=== PATIENT | female | born 1990 | race Caucasian/White ===

== ENCOUNTER 2019-12-28 10:36 | Outpatient (CLI) | payer MEDICAID, SELFPAY ==
--- NOTE | 2019-12-28 | DI.US_ITS ---
EXAM: US ABDOMEN CLINICAL HISTORY: POSTPRANDIAL NAUSEA, VOMITING, R11.2 TECHNIQUE: Ultrasound abdomen performed using standard protocol. COMPARISON: No exams were available for comparison FINDINGS: ABDOMINAL AORTA AND IVC: Visualized portions normal caliber. PANCREAS: Normal where visualized. LIVER: Normal. Hepatopedal flow in the Portal Vein. GALLBLADDER: No evidence of cholelithiasis. No evidence of wall thickening. No pericholecystic fluid identified. BILIARY SYSTEM: Common bile duct measures < 7 mm. No intrahepatic biliary ductal dilation. GREER'S SIGN: Negative. KIDNEYS: Kidneys are symmetric in size. No evidence of renal calculi. No evidence of hydronephrosis. No renal mass or cyst identified. SPLEEN: Not enlarged. ASCITES: None seen. IMPRESSION: Normal sonographic appearance of the upper abdomen. DATA REPOSITORY:
== END 2019-12-28 10:56 ==
PROVIDERS: PCP Internal Medicine; Visit Provider Nurse Practitioner Adult Health
DX: R11.2 Nausea with vomiting, unspecified (principal)
CPT/HCPCS: 76700

== ENCOUNTER 2020-03-17 16:03 | Outpatient (REF) | payer MEDICAID, SELFPAY ==
[2020-03-19 16:54] LABS: COVID-19 RT-PCR UVMMC Result Positive (Negative)
== END 2020-03-17 16:04 | disposition home or self-care (01) ==
LOC: NCHCN 16:03
PROVIDERS: PCP Internal Medicine; Visit Provider Nurse Practitioner Family
DX: J06.9 Acute upper respiratory infection, unspecified (principal)
CPT/HCPCS: U0003

== ENCOUNTER 2020-06-10 20:17 | Emergency (ER) | payer MEDICAID, SELFPAY ==
[2020-06-10 20:20] VITALS: BP 118/80; PULSE 92; RESP 18; TEMP 36.5; O2SAT 98
[2020-06-10 20:52] LABS: Abs Immature Grans 0.03 10^3/uL (0.0-0.06); Absolute Basophil Count 0.05 10^3/uL (0.0-0.2); Absolute Eosinophil Count 0.14 10^3/uL (0.0-0.7); Absolute Monocyte Count 0.65 10^3/uL (0.1-0.8); Basophils % 0.4; Eosinophils % 1.1; HCT 38.3 % (36.0-46.0); HGB 12.8 g/dL (11.2-15.7); Immature Grans % 0.2; Lymphocytes % 25.7; MCH 27.6 pg (27.0-33.0); MCHC 33.4 % (32.0-36.0); MCV 82.5 fL (80-95); MPV 11.1 fL (8.0-11.0); Monocytes % 5.3; Neutrophils % 67.3; Nucleated RBC 0 %; Platelet Count 303 10^3/uL (130-400); RBC 4.64 10^6/uL (3.93-5.22); RDW 12.7 % (11.7-14.6); RDW-SD 38.3 fL; WBC 12.35 10^3/uL (4.4-10.8)
[2020-06-10 20:53] LABS: Absolute Lymphocyte Count 3.17 10^3/uL (1.2-3.4); Absolute Neutrophil Count 8.31 10^3/uL (1.2-6.7)
[2020-06-10] MEDS: Normal Saline Flush 10 ML SYR IVP (20:55)
[2020-06-10] MEDS: Normal Saline - Diluent 50 ML VIAL IV (20:56)
[2020-06-10] MEDS: Omnipaque 350 MG/ML 100 ML BTL IJ (20:59)
--- NOTE | 2020-06-10 20:59 | DI.CT_ITS ---
Exam(s) CT ABDOMEN PELVIS W EXAM: CT ABDOMEN PELVIS W CLINICAL HISTORY: rlq abd pain TECHNIQUE: Imaging Protocol: Axial computed tomography images with coronal and sagittal reformatted images were created and reviewed CONTRAST MATERIAL: Intravenous: Omnipaque 350 Contrast volume:99 mL Oral: No COMPARISON: No exams were available for comparison FINDINGS: ABDOMEN: Lung Bases: Normal where visualized. Liver: Normal density. No measurable mass. There are few tiny hypodensities in the liver. They are t oo small for further characterization, but likely reflect small cysts. Portal, Superior Mesenteric, and Splenic Veins: Unremarkable. Gallbladder and Biliary Tract: No radiodense calculus or dilation. Pancreas: Normal density, no abnormal calcifications or inflammatory process. Spleen: Normal. Adrenals: No masses seen. Kidneys: Normal size, contour and axis. No radiodense stones or obstructive uropathy. No masses seen. Abdominal Aorta: Abdominal portion non-dilated. Bowel: No evidence of obstruction. Appendix is unremarkable. The descending colon is not distended w hich likely accounts for the apparent bowel wall thickening. However, colitis cannot be excluded. Peritoneal Cavity: No ascites, collection or mesenteric inflammatory response. No free air. Lymph Nodes: Within normal limits. Bones: Within normal limits for the patient's age. Soft Tissues: Unremarkable. PELVIS: Bladder: Incompletely distended but no gross abnormality is identified. Reproductive Organs: Unremarkable as visualized. Lymph Nodes: Within normal limits. Bones: Within normal limits for the patient's age. IMPRESSION: Apparent bowel wall thickening in the descending colon. This may be due to underdistention. Infecti ous or inflammatory colitis should also be considered. Please correlate clinically. RADIATION DOSE DELIVERED: 861.02mGy.cm Total DLP DATA REPOSITORY: All CT scans at this facility are submitted to the National Radiology Data Registry (NRDR) Dose Index Registry (DIR) with the [employer] ([employer]). RADIATION OPTIMIZATION: All CT scans at this facility use at least one of these dose optimization te chniques: automated exposure control; mA and/or kV adjustment per patient size (includes targeted exa ms where dose is matched to clinical indication); or iterative reconstruction.
[2020-06-10 21:06] LABS: ALT 17 U/L (14-59); AST 11 U/L (15-37); Albumin 4.1 g/dL (3.4-5.0); Alkaline Phosphatase 70 U/L (46-116); Anion Gap 10.7 mmol/L (3-11); BUN 13 mg/dL (7-18); Bilirubin, Total 0.2 mg/dL (0.2-1.0); CO2 27.3 mmol/L (21.0-32.0); CREATININE 0.9 mg/dL (0.55-1.02); Calcium 9.1 mg/dL (8.5-10.1); Chloride 104 mmol/L (98-107); Glucose 101 mg/dL (74-106); Lipase 260 U/L (73-393); Potassium 3.5 mmol/L (3.5-5.1); Sodium 142 mmol/L (136-145); Total Protein 7.5 g/dL (6.4-8.2)
[2020-06-10 21:18] LABS: Bilirubin Negative (Negative); Blood Trace-intact (Negative); Clarity Cloudy (Clear); Glucose Negative (Negative); Ketones Negative (Negative); Leukocyte Esterase Negative (Negative); Nitrite Negative (Negative); Urobilinogen 0.2 EU/dL (Up TO 0.2); pH 7.5 (5-8)
--- NOTE | 2020-06-10 21:20 | DI.VRAD_ITS ---
PROCEDURE INFORMATION: Exam: CT Abdomen And Pelvis With Contrast Exam date and time: 06/10/2020 8:39 PM Age: 29 years old Clinical indication: Abdominal pain; Localized; Right lower quadrant (rlq) TECHNIQUE: Imaging protocol: Computed tomography of the abdomen and pelvis with contrast. Radiation optimization: All CT scans at this facility use at least one of these dose optimization techniques: automated exposure control; mA and/or kV adjustment per patient size (includes targeted exams where dose is matched to clinical indication); or iterative reconstruction. Contrast material: [id number]; Contrast volume: 100 ml; Contrast route: INTRAVENOUS (IV); COMPARISON: US ABDOMEN 12/28/2019 7:20 AM FINDINGS: Liver: Tiny low-density right lobe hepatic lesion, probable small cyst. Gallbladder and bile ducts: Gallbladder partially contracted. Pancreas: Normal. No ductal dilation. Spleen: Normal. No splenomegaly. Adrenal glands: Normal. No mass. Kidneys and ureters: Normal. No hydronephrosis. Stomach and bowel: The descending colon is decompressed with possible mild wall thickening and mild adjacent inflammatory change. Appendix: The appendix is well seen, within normal limits. The appendix is well seen, within normal limits. Intraperitoneal space: Unremarkable. No free air. No significant fluid collection. Vasculature: Unremarkable. No abdominal aortic aneurysm. Lymph nodes: Unremarkable. No enlarged lymph nodes. Urinary bladder: Bladder decompressed. Reproductive: Unremarkable as visualized. Bones/joints: Unremarkable. No acute fracture. Soft tissues: Unremarkable. IMPRESSION: Possible mild left-sided colitis versus artifact of incomplete distention. Dictated and Authenticated by: Jahaira Gillespie MD. Ordering:AC Ruffin MD
[2020-06-10 21:31] LABS: Bacteria Negative HPF (Negative); C & S Indicated? No/Sq. Contamination; Casts Negative LPF (Negative); Crystals Many Amorphous HPF (Negative); Epithelial Cells Many HPF (Negative); Mucus Moderate (Negative); Other Cells Negative (Negative); RBC Negative HPF (0-2); WBC Negative HPF (0-5)
--- NOTE | 2020-06-10 21:44 | W.ED.GENAD ---
Discharge Plan Disposition Patient Disposition: HOME Discharge Details Clinical Impression: Abdominal pain, Colitis Primary Care Provider: Gamal Bacon ED Provider: Augustin Reyna Home Meds and New Rx's Prescriptions: No Action No Known Home Meds RF: 0 Discharge Instructions Instructions: Abdominal Pain (ED) Additional Instructions: CT of your abdomen pelvis revealed a possible mild left-sided colitis. Diagnostic work-up today was not complete. A pelvic ultrasound could not be completed at [facility] and you declined transfer to an alternate hospital. You understand that diagnostic capabilities today was limited and that you may have a disease process that could worsen as we discussed. Please take ibuprofen over the counter. Take 600mg by mouth every 6 hours as needed for pain. Please contact your primary care physician to arrange follow-up. Return to the ER immediately for any worsening or new concerning symptoms or if you decide to pursue additional diagnostic ultrasound that was recommended tonight. Referrals: Gamal Bacon [Primary Care Provider] - Medical Decision Making 29-year-old female here with right lower quadrant abdominal pain that started earlier today and has persisted. Patient is tender in her right lower quadrant. Abdomen is soft with no rebound tenderness. Considered acute surgical process including appendicitis. CT abdomen pelvis was interpreted by radiology: Normal appendix, reproductive structures unremarkable, possible mild left-sided colitis versus artifact of incomplete distention. Labs reviewed and leukocytosis is noted. Microscopic urinalysis, LFTs and lipase nondiagnostic. negative. Ovarian torsion remains on differential. No vascular technologist sonographer available. Results were reviewed with the patient and I explained diagnostic limitations of CT and recommended transfer for ultrasound. Patient provided informed refusal of recommended transfer. I reiterated and emphasized potential for ovarian torsion and implications of missed/delayed diagnosis and treatment. Patient verbalized understanding and notes that she is not concerned at this time but would return if pain worsened. I offered Tylenol or ibuprofen and patient declined noting pain mild. Patient will be discharged to follow-up with pcp. Disposition decision was made weighing the risks and benefits of hospitalization versus outpatient treatment, the risk for further decompensation, and the patient's wishes. The patient was stable and requested discharge. Prior to discharge, my usual and customary return precautions were reviewed with the patient - this included follow-up instructions and reason to return to the emergency department if condition worsens, does not improve as expected, or other new concerns arise. Imaging Data Radiologic Study: Imaging: CT Scan (abd pelv) Radiologist's impression: FINDINGS: Liver: Tiny low-density right lobe hepatic lesion, probable small cyst. Gallbladder and bile ducts: Gallbladder partially contracted. Pancreas: Normal. No ductal dilation. Spleen: Normal. No splenomegaly. Adrenal glands: Normal. No mass. Kidneys and ureters: Normal. No hydronephrosis. Stomach and bowel: The descending colon is decompressed with possible mild wall thickening and mild adjacent inflammatory change. Appendix: The appendix is well seen, within normal limits. The appendix is well seen, within normal limits. Intraperitoneal space: Unremarkable. No free air. No significant fluid collection. Vasculature: Unremarkable. No abdominal aortic aneurysm. Lymph nodes: Unremarkable. No enlarged lymph nodes. Urinary bladder: Bladder decompressed. Reproductive: Unremarkable as visualized. Bones/joints: Unremarkable. No acute fracture. Soft tissues: Unremarkable. IMPRESSION: Possible mild left-sided colitis versus artifact of incomplete distention. HPI General Mode of arrival: ambulatory. Date/Time Provider Initiated Documentation: 06/10/20 20:23. Limitations to Documentation: no limitations. Information obtained by: patient. HPI Narrative: 29-year-old female presents with chief complaint of abdominal pain. Patient notes pain started this morning and has persisted. Pain waxes and wanes. Pain localized to right lower quadrant. Pain feels sharp. Currently moderate 5/10. She has associated nausea. No vomiting. She did have a yellow bowel movement around 2 PM today. No dysuria, hematuria, or increased urinary frequency. Last menstrual period was approximately 2 weeks ago was normal. No vaginal bleeding or vaginal discharge. Related Data Home Medications Medication Instructions Recorded Confirmed Unknown [No Known Home Meds] 06/10/20 06/10/20 Allergies Allergy/AdvReac Type Severity Reaction Status Date / Time No Known Allergies Allergy Unverified 06/10/20 20:36 General Stated Complaint: Abd Prob LINDSEY: 3 Review of Systems All systems reviewed & are unremarkable except as noted in HPI and below Constitutional Constitutional: Denies fever(s) Gastrointestinal Gastrointestinal: Reports as per HPI Genitourinary Genitourinary: Reports as per HPI [facility] Social History Smoking/Tobacco Use Status: Never Smoking risk assessment performed?: Yes Alcohol Intake: current Alcohol Intake frequency: holidays/special occasions only Drug use: Never Substance use type: does not use Do you feel safe at home: Yes Do you feel safe in your relationship?: Yes Exam Const General: cooperative and no acute distress HENMT Mouth: moist mucous membranes Eyes Conjunctivae: normal conjunctivae Sclera: normal sclerae Neck Neck: trachea midline Resp Auscultation: clear to auscultation bilaterally, no rales, no rhonchi and no wheezes Cardio Rate: regular rate and not tachycardic Rhythm: regular rhythm GI Palpation: soft, not firm, no guarding, no masses, not rigid and tender in the RLQ Auscultation: normal bowel sounds Skin General skin exam: no rashes or lesions noted Neuro General: patient alert, patient awake and tone normal Extrem General: no edema Psych Appearance: grossly normal Mental Status: mental status grossly normal Course Vital Signs Vital signs: Vital Signs Temperature 36.5 C 06/10/20 20:20 Pulse 92 H 06/10/20 20:20 Respiratory Rate 18 06/10/20 20:20 Blood Pressure 118/80 06/10/20 20:20 Pulse Oximetry 98 06/10/20 20:20 Temperature 36.5 C 06/10/20 20:20 Temperature Source Skin 06/10/20 20:20 Pulse 92 H 06/10/20 20:20 Respiratory Rate 18 06/10/20 20:20 Respiratory Effort Non-Labored 06/10/20 20:51 Blood Pressure 118/80 06/10/20 20:20 Blood Pressure Position Sitting 06/10/20 20:20 Pulse Oximetry 98 06/10/20 20:20 Oxygen Delivery Method Room Air 06/10/20 20:20 Oxygen Flow Rate 0 06/10/20 20:20 Pain Level 0 06/10/20 20:20 Lab/Test Results Lab/Test Results: Laboratory Tests Range/Units 06/10/20 06/10/20 06/10/20 20:30 20:45 20:45 WBC (4.4-10.8) 10^3/uL 12.35 H RBC (3.93-5.22) 10^6/uL 4.64 Hgb (11.2-15.7) g/dL 12.8 Hct (36.0-46.0) % 38.3 MCV (80-95) fL 82.5 MCH (27.0-33.0) pg 27.6 MCHC (32.0-36.0) % 33.4 RDW (11.7-14.6) % 12.7 Plt Count (130-400) 10^3/uL 303 MPV (8.0-11.0) fL 11.1 H Immature Gran % 0.2 Neutrophils % 67.3 Lymphocytes % 25.7 Monocytes % 5.3 Eosinophils % 1.1 Basophils % 0.4 Nucleated RBC % % 0 Absolute Neutrophils (1.2-6.7) 10^3/uL 8.31 H Absolute Lymphocytes (1.2-3.4) 10^3/uL 3.17 Absolute Monocytes (0.1-0.8) 10^3/uL 0.65 Absolute Eosinophils (0.0-0.7) 10^3/uL 0.14 Absolute Basophils (0.0-0.2) 10^3/uL 0.05 Sodium (136-145) mmol/L 142 Potassium (3.5-5.1) mmol/L 3.5 Chloride (98-107) mmol/L 104 Carbon Dioxide (21.0-32.0) mmol/L 27.3 Anion Gap (3-11) mmol/L 10.7 BUN (7-18) mg/dL 13 Creatinine (0.55-1.02) mg/dL 0.9 Estimated GFR/1.73 m2 (mL/min/1.73m2) >= 60.00 Glucose (74-106) mg/dL 101 Calcium (8.5-10.1) mg/dL 9.1 Total Bilirubin (0.2-1.0) mg/dL 0.2 AST (15-37) U/L 11 L ALT (14-59) U/L 17 Alkaline Phosphatase (46-116) U/L 70 Total Protein (6.4-8.2) g/dL 7.5 Albumin (3.4-5.0) g/dL 4.1 Lipase (73-393) U/L 260 Urine Color (Yellow) Yellow Urine Clarity (Clear) Cloudy Urine pH (5-8) 7.5 Ur Specific [place] (1.005-1.025) 1.020 Urine Protein (Negative) mg/dL Negative Urine Ketones (Negative) mg/dL Negative Urine Blood (Negative) Trace-intact H Urine Nitrite (Negative) Negative Urine Bilirubin (Negative) Negative Urine Urobilinogen (Up TO 0.2) EU/dL 0.2 Ur Leukocyte Esterase (Negative) Negative Urine RBC (0-2) HPF Negative Urine WBC (0-5) HPF Negative Ur Epithelial Cells (Negative) HPF Many Urine Crystals (Negative) HPF Many amorphous Urine Bacteria (Negative) HPF Negative Urine Casts (Negative) LPF Negative Urine Mucus (Negative) Moderate Urine Other (Negative) Negative Ur Culture Indicated? No/sq. contamination Urine Glucose (Negative) mg/dL Negative POC- Test(urine) Negative
[2020-06-10 22:35] VITALS: BP 118/80; PULSE 92; RESP 18; TEMP 36.5; O2SAT 98
== END 2020-06-10 22:25 | disposition home or self-care (01) ==
PROVIDERS: Emergency Provider Student in an Organized Health Care Education/Training Program; PCP Internal Medicine
DX: K52.89 Other specified noninfective gastroenteritis and colitis (principal); R10.31 Right lower quadrant pain
CPT/HCPCS: 36415; 80053; 81025; 83690; 99285; 74177; 81003; 81015; 85025; 99284; J3490

== ENCOUNTER 2021-03-03 20:38 | Emergency (ER) | payer MEDICAID, SELFPAY ==
[2021-03-03 20:41] VITALS: BP 125/91; PULSE 107; RESP 16; TEMP 36.3; O2SAT 99
--- NOTE | 2021-03-03 21:01 | ED.GENADUL_ITS ---
Discharge Plan Disposition Patient Disposition: HOME Condition: Stable Discharge Details Clinical Impression: Acute otitis media with effusion of right ear, Pharyngitis Primary Care Provider: Gamal Bacon ED Provider: Ken Broussard Home Meds and New Rx's Prescriptions: New amoxicillin 875 mg tablet 875 mg PO BID Qty: 14 RF: 0 Continued trazodone 50 mg tablet 50 mg PO HS RF: 0 fluoxetine 20 mg capsule 25 mg PO DAILY RF: 0 Discharge Instructions Instructions: Pharyngitis (ED), Ear Infection (ED) Additional Instructions: Please stay well-hydrated and feel free to take [id number] pain medication such as ibuprofen or Tylenol as needed for discomfort. Given that we are performing a send out COVID test it is recommended that you quarantine until your test results are available which is typically in 24 to 48 hours. You will be contacted with your result when they are available. If you have any new or significant worsening of your symptoms or further concerns feel free to follow-up in the emergency department for reevaluation. Stand Alone Forms: PENDING COVID-19 TESTING, Work Release Discharge Data Discharge Date/Time-TO BE ENTERED AT DEPARTURE: 03/03/21 21:13 Medical Decision Making Physical exam shows bulging, loss of landmarks and purulent effusion to R TM. exam shows no findings of malignant otitis media, mastoiditis. Diagnosis of otitis media, ABX were prescribed and control of symptoms was discussed with parents along with follow-up and return precautions. Exam also consistent with viral Pharyngitis. no signs of deep neck space infection ( Retropharyngeal ab scess, Jac's angina, Parapharyngeal space infection, Peritonsillar Abscess (NON DESTRUCTIVE TESTING SCIENTIST)) or Epiglottitis. Pt non toxic and stable. Exam findings are not consistent with strep so no strep testing performed at this time but more concerned about viral etiology so COVID testing sent. Patient instructed on quarantine measures along with [id number] medication she may take pending results. After discussion of diagnosis and plan of care patient has no further needs, questions, or concerns and states clear understanding to return to the emergency department for any worsening symptoms. HPI General Mode of arrival: ambulatory . Date/Time Provider Initiated Documentation: 03/03/21 20:53 . Limitations to Documentation: no limitations . Information obtained by: patient . History of Present Illness 30 year old F presents to the emergency department with the chief complaint of Right ear pain , described as moderate, with intensity rated at 6. Quality is described as aching, and is localized to the right (ear). Patient started experiencing this day(s) (1) and it has been constant. No relieving factors improve symptom(s), No exacerbating factors reported . Patient notes other (sore throat). Patient did receive the following treatments prior to arrival, NSAID Related Data Home Medications Medication Instructions Recorded Confirmed amoxicillin 875 mg PO BID #14 tab 03/03/21 fluoxetine 25 mg PO DAILY 03/03/21 03/03/21 trazodone 50 mg PO HS 03/03/21 03/03/21 Previous Rx's Medication Instructions Recorded amoxicillin 875 mg PO BID #14 tab 03/03/21 Allergies Allergy/AdvReac Type Severity Reaction Status Date / Time No Known Allergies Allergy Unverified 03/03/21 20:43 General Stated Complaint: EarProblem LINDSEY: 4 Review of Systems Constitutional Constitutional: Denies chills, Denies fever(s), Denies headache(s) and Reports malaise ENT Ears, Nose, Mouth, and Throat: Reports as per HPI, Denies change in voice, Denies dysphagia, Denies ear discharge, Reports otalgia, Denies headache(s), Denies hoarseness, Denies lip swelling, Denies mouth lesions, Denies nasal congestion, Reports odynophagia, Reports sore throat, Denies throat swelling and Denies tongue swelling Cardiovascular Cardiovascular: Denies chest pain Respiratory Respiratory: Denies chest congestion and Denies cough Gastrointestinal Gastrointestinal: Denies dysphagia and Reports odynophagia Neurologic Neurologic: Denies headache(s) Allergic/Immunologic Allergic/Immunologic: Denies lip swelling, Denies throat swelling and Denies tongue swelling PFSH All Active Problems Anxiety and depression (Chronic) 41 weeks gestation of (Acute 04/25/14) Abdominal pain (Acute) Colitis (Acute) Acute otitis media with effusion of right ear (Acute) Pharyngitis (Acute) Social History Smoking/Tobacco Use Status: Never Smoking risk assessment performed?: Yes Alcohol Intake: current Alcohol Intake frequency: holidays/special occasions only Drug use: Never Substance use type: does not use Do you feel safe at home: Yes Do you feel safe in your relationship?: Yes Exam Const General: cooperative, healthy appearing, comfortable, no acute distress and not ill appearing Orientation: alert, awake and oriented x3 HENMT Head: normal to inspection and normocephalic Ears: hearing grossly normal bilaterally, external ears normal, TM normal on the left, mastoids normal and TM abnormal bulging on the right, wth effusion purulent and with loss of landmarks on the right General nose exam: external nose normal and nares normal Face and sinus: normal facial exam and sinuses nontender Mouth: oral mucosae normal, lip normal, tongue normal, no audible dysphonia, no drooling and no trismus Throat: uvula midline, abnormal tonsil bilaterally erythema and no peritonsillar masses Neck Neck: normal visual inspection, full ROM, no lymphadenopathy and no meningeal signs Resp Effort & Inspection: normal respiratory effort, able to speak in complete sentences and no stridor Auscultation: clear to auscultation bilaterally Cardio Rate: regular rate Rhythm: regular rhythm Heart Sounds: S1 normal and S2 normal Skin General skin exam: no rashes or lesions noted Course Vital Signs Vital signs: Vital Signs Temperature 36.3 C L 03/03/21 20:41 Pulse 107 H 03/03/21 20:41 Respiratory Rate 16 03/03/21 20:41 Blood Pressure 125/91 H 03/03/21 20:41 Pulse Oximetry 99 03/03/21 20:41 Temperature 36.3 C L 03/03/21 20:41 Temperature Source Temporal Artery Scan 03/03/21 20:41 Pulse 107 H 03/03/21 20:41 Respiratory Rate 16 03/03/21 20:41 Respiratory Effort Non-Labored 03/03/21 20:45 Blood Pressure 125/91 H 03/03/21 20:41 Blood Pressure Position Sitting 03/03/21 20:41 Pulse Oximetry 99 03/03/21 20:41 Oxygen Delivery Method Room Air 03/03/21 20:41 Oxygen Flow Rate 0 03/03/21 20:41 Pain Level 6 03/03/21 20:45
--- NOTE | 2021-03-05 10:36 | NUR.NOTE ---
pt called for covid result, told it was still pending.Nursing Note:
[2021-03-05 15:24] LABS: COVID-19 RT-PCR UVMMC Result Negative (Negative)
--- NOTE | 2021-03-07 09:01 | NUR.NOTE ---
relayed negative covid test results to patient.
== END 2021-03-03 21:13 | disposition home or self-care (01) ==
PROVIDERS: Emergency Provider Nurse Practitioner Family; PCP Internal Medicine
DX: H65.191 Other acute nonsuppurative otitis media, right ear (principal); J02.9 Acute pharyngitis, unspecified; Z20.822 Contact with and (suspected) exposure to COVID-19
CPT/HCPCS: 99283; U0003

== ENCOUNTER 2021-05-15 19:16 | Emergency (ER) | payer MEDICAID, SELFPAY ==
[2021-05-15 19:29] VITALS: BP 124/85; PULSE 80; O2SAT 98
--- NOTE | 2021-05-15 19:43 | ED.GENADUL_ITS ---
Discharge Plan Disposition Patient Disposition: HOME Condition: Improving Discharge Details Clinical Impression: UTI (urinary tract infection) Primary Care Provider: Gamal Bacon ED Provider: Jose Fernandez Home Meds and New Rx's Prescriptions: New cephalexin 500 mg capsule 500 mg PO TID 7 Days Qty: 21 0RF Continued trazodone 50 mg tablet 50 mg PO HS 0RF Label Comments: TAKE 1 TABLET 2 HOURS BEFORE BEDTIME IF NOT GETTING GOOD SLEEP IN 3 DAYS INCREASE TO 2 TABLETS fluoxetine 20 mg capsule 25 mg PO DAILY 0RF Label Comments: TAKE ONE CAPSULE BY MOUTH EVERY MORNING No Action amoxicillin 875 mg tablet 875 mg PO BID Qty: 14 0RF Discharge Instructions Instructions: Urinary Tract Infection in Women (ED) Additional Instructions: Small, frequent sips of fluids to maintain hydration. Take antibiotics 4 times daily for the first day, then 3 times daily for 1 week's time. Return to the ER if you have increasing pain, develop a fever, vomiting, or any other acute concerns. May use Tylenol if needed for discomfort. Medical Decision Making This is a 30-year-old female who states she had the onset of lower back pain that became more localized to the left lower quadrant of her abdomen today. She intermittent. She denies any urinary changes. She arrives to the ER alert, interactive and in no acute distress. Differential gnosis would include urinary tract infection, patient has had difficulty with colon issues in the past as well. Screening labs were obtained addition to urinalysis. White blood cell count is 10, hematocrit 39, platelets 286. The patient's chemistries are reassuring. LFTs and lipase unremarkable. Urinalysis with positive nitrates, small blood, small leuk esterase, numerous white blood cells and bacteria. Discussed with her further work-up today which she declines. I do feel this is consistent with an ascending UTI will treat with a course of Keflex. Patient understands to return for repeat evaluation if not improving in 24 to 48 hours time. HPI General Mode of arrival: ambulatory . Date/Time Provider Initiated Documentation: 05/15/21 19:33 . Limitations to Documentation: no limitations . Information obtained by: patient . History of Present Illness 30 year old F presents to the emergency department with the chief complaint of Left-sided abdominal pain, described as mild and moderate, and is localized to the abdomen. Patient reports radiation to back. Patient started experiencing this hour(s) and it has been intermittent. improves with No relieving factors improve symptom(s), No exacerbating factors reported . Patient notes denies fever/chills, loss of appetite and nausea/vomiting. Patient did receive the following treatments prior to arrival, none Related Data Home Medications Medication Instructions Recorded Confirmed amoxicillin 875 mg tablet 875 mg PO BID #14 tab 03/03/21 fluoxetine 20 mg capsule 25 mg PO DAILY 03/03/21 03/03/21 trazodone 50 mg tablet 50 mg PO HS 03/03/21 03/03/21 cephalexin 500 mg capsule 500 mg PO TID 7 Days #21 cap 05/15/21 Previous Rx's Medication Instructions Recorded amoxicillin 875 mg tablet 875 mg PO BID #14 tab 03/03/21 cephalexin 500 mg capsule 500 mg PO TID 7 Days #21 cap 05/15/21 Allergies Allergy/AdvReac Type Severity Reaction Status Date / Time No Known Allergies Allergy Unverified 03/03/21 20:43 General Stated Complaint: Abd Prob LINDSEY: 3 Review of Systems Narrative: Patient denies change to urine. No vomiting. Has loose stool typically and this is unchanged. No bloody stool. 8 systems were reviewed and otherwise negative PFSH All Active Problems (Updated 05/15/21 @ 20:45 by Jose Fernandez MD) Anxiety and depression (Chronic) 41 weeks gestation of (Acute 04/25/14) Abdominal pain (Acute) Colitis (Acute) UTI (urinary tract infection) (Acute) Social History Smoking/Tobacco Use Status: Never Smoking risk assessment performed?: Yes Alcohol Intake: current Alcohol Intake frequency: holidays/special occasions only Drug use: Never Substance use type: does not use Do you feel safe at home: Yes Do you feel safe in your relationship?: Yes Exam Narrative Exam Narrative: GEN: awake, alert, oriented 3. Pleasant, well groomed, interactive. HEAD: Normocephalic, atraumatic ENT: Mucous membranes moist, oropharynx unremarkable, External ear exam unrem arkable EYES: PERRL, EOMI NECK: Full ROM, no JER, no menigismus CHEST/RESP: Nontender, clear to auscultation bilateral, no wheeze/rhonchi/rales CARDIOVASCULAR: RRR, no murmur, rub tiffany. 2+ Rad pulse bilateral ABDOMEN: Soft, tender left lower quadrant, no rebound appreciated, no mass. +Bowel sounds EXT: Full ROM, no edema, no rash Neuro: Grossly normal neurologic exam, conversant, interactive. Psych: Speech fluent, thoughts congruent, affect normal Course Vital Signs Vital signs: Vital Signs Pulse 80 05/15/21 19:29 Blood Pressure 124/85 05/15/21 19:29 Pulse Oximetry 98 05/15/21 19:29 Pulse 80 05/15/21 19:29 Blood Pressure 124/85 05/15/21 19:29 Blood Pressure Position Sitting 05/15/21 19:29 Pulse Oximetry 98 05/15/21 19:29 Oxygen Delivery Method Room Air 05/15/21 19:29 Oxygen Flow Rate 0 05/15/21 19:29 Lab/Test Results Lab/Test Results: POC- Test(urine) Negative
[2021-05-15 19:51] LABS: Bilirubin Negative (Negative); Blood Small (Negative); Clarity Cloudy (Clear); Glucose Negative (Negative); Ketones Negative (Negative); Leukocyte Esterase Small (Negative); Nitrite Positive (Negative); Specific Gravity 1.025 (1.005-1.025); Urobilinogen 0.2 EU/dL (Up TO 0.2); pH 6.5 (5-8)
[2021-05-15 20:00] LABS: Abs Immature Grans 0.01 10^3/uL (0.0-0.06); Absolute Basophil Count 0.03 10^3/uL (0.0-0.2); Absolute Eosinophil Count 0.14 10^3/uL (0.0-0.7); Absolute Lymphocyte Count 3.04 10^3/uL (1.2-3.4); Absolute Monocyte Count 0.51 10^3/uL (0.1-0.8); Absolute Neutrophil Count 6.37 10^3/uL (1.2-6.7); Basophils % 0.3; Eosinophils % 1.4; HCT 39.4 % (36.0-46.0); HGB 12.8 g/dL (11.2-15.7); Immature Grans % 0.1; Lymphocytes % 30.1; MCH 27.7 pg (27.0-33.0); MCHC 32.5 % (32.0-36.0); MCV 85.3 fL (80-95); MPV 11.1 fL (8.0-11.0); Neutrophils % 63.1; Nucleated RBC 0 %; Platelet Count 286 10^3/uL (130-400); RBC 4.62 10^6/uL (3.93-5.22); RDW 12.9 % (11.7-14.6); RDW-SD 39.9 fL
[2021-05-15 20:05] LABS: Bacteria Many HPF (Negative); C & S Indicated? No/Sq. Contamination; Crystals Negative HPF (Negative); Epithelial Cells Many HPF (Negative); Mucus Negative (Negative); WBC >50 HPF (0-5)
[2021-05-15 20:11] LABS: ALT 19 U/L (14-59); AST 20 U/L (15-37); Albumin 4.2 g/dL (3.4-5.0); Alkaline Phosphatase 64 U/L (46-116); Anion Gap 8.4 mmol/L (3-11); BUN 13 mg/dL (7-18); Bilirubin, Total 0.4 mg/dL (0.2-1.0); CO2 27.6 mmol/L (21.0-32.0); CREATININE 0.9 mg/dL (0.55-1.02); Calcium 9.3 mg/dL (8.5-10.1); Chloride 104 mmol/L (98-107); Glucose 108 mg/dL (74-106); Lipase 184 U/L (73-393); Potassium 3.9 mmol/L (3.5-5.1); Sodium 140 mmol/L (136-145); Total Protein 7.8 g/dL (6.4-8.2)
[2021-05-15] MEDS: Ketorolac 15 MG/ML VIAL IVP (20:51)
[2021-05-15] MEDS: Cephalexin 500 MG CAP, 4 CAPS/BTL PO (20:52)
[2021-05-15 20:59] VITALS: PULSE 86; RESP 18; TEMP 36.9; O2SAT 98
== END 2021-05-15 21:01 | disposition home or self-care (01) ==
PROVIDERS: Emergency Provider Emergency Medicine; PCP Internal Medicine
DX: N39.0 Urinary tract infection, site not specified (principal); M54.50 Low back pain, unspecified
CPT/HCPCS: 36415; 80053; 81025; 83690; 99283; 81003; 81015; 85025; J1885

== ENCOUNTER 2021-06-30 09:28 | Emergency (ER) | payer MEDICAID, SELFPAY ==
[2021-06-30 09:33] VITALS: BP 131/85; PULSE 125; RESP 16; TEMP 36.3; O2SAT 97
--- NOTE | 2021-06-30 09:45 | DI.CT_ITS ---
Exam(s) CT ABDOMEN PELVIS WO EXAM: CT ABDOMEN PELVIS WO CLINICAL HISTORY: Right Flank Pain. TECHNIQUE: Imaging Protocol: Axial computed tomography images with coronal and sagittal reformatted images were created and reviewed. COMPARISON: CT CT ABDOMEN PELVIS W from 06/10/2020 FINDINGS: ABDOMEN: Lung Bases: Normal where visualized. Liver: Normal density. There is again seen a small cyst in the posterior segment of the right lobe of the liver. Gallbladder and biliary tract: No radiodense calculus or biliary ductal dilation. Pancreas: Normal density, no abnormal calcifications or inflammatory process. Spleen: Normal. Kidneys: Normal size, contour and axis.No radiodense stones are seen. There is mild dilatation of th e right ureter with surrounding inflammation. No masses seen. Adrenal glands: No mass is seen. Lymph nodes: Within normal limits. Abdominal Aorta: Abdominal portion non-dilated. PELVIS: Bladder:Symmetric distention, no gross wall thickening. Bowel: No obstruction or bowel wall thickening. Appendix is unremarkable. Peritoneal cavity: No ascites, collection or mesenteric inflammatory response. No free air. Reproductive organs: Within normal limits. Bones: Within normal limits. Soft Tissues: Within normal limits. IMPRESSION: 1. Mild dilatation of the right ureter with mild surrounding inflammation. No radiopaque stone is se en in the renal collecting system. The findings may represent a recently passed stone, non radiopaqu e stone or inflammation/infection. Please correlate clinically. 2. Results of this exam have been verbally communicated with provider. RADIATION DOSE DELIVERED: 875.83mGy.cm Total DLP DATA REPOSITORY: All CT scans at this facility are submitted to the National Radiology Data Registry (NRDR) Dose Index Registry (DIR) with the [employer] (ACR). RADIATION OPTIMIZATION: All CT scans at this facility use at least one of these dose optimization te chniques: automated exposure control; mA and/or kV adjustment per patient size (includes targeted exa ms where dose is matched to clinical indication); or iterative reconstruction.
--- NOTE | 2021-06-30 09:47 | ED.GENADUL_ITS ---
Discharge Plan Disposition Patient Disposition: HOME Condition: Stable Discharge Details Clinical Impression: Acute right flank pain, UTI (urinary tract infection) Primary Care Provider: Gamal Bacon ED Provider: Rubi Galeano Home Meds and New Rx's Prescriptions: New cephalexin 500 mg tablet 500 mg PO BID 7 Days Qty: 14 0RF Discharge Instructions Instructions: Urinary Tract Infection in Women (ED), Flank Pain (ED) Additional Instructions: Take the antibiotic twice daily as instructed. Take it with food. Follow up with primary care provider in 3-5 days. Return to ED sooner if any worsening or concerns. Increase oral fluids. Please take Tylenol or Ibuprofen with food every 4-6 hours as needed for pain and swelling. Referrals: Gamal Bacon [Primary Care Provider] - 3 days Medical Decision Making 30-year-old female presents to the ER with a chief complaint of right flank pain which began last night. Patient reports that she thought she strained her back had some back pain last night. CBC, CMP, lipase, urinalysis ordered. Offered patient pain medication which she declines at this time. She reports that Tylenol and ibuprofen make her sick. Urinalysis shows trace blood and trace leukocyte no nitrites. CBC shows elevated white blood cell count at 15.01, absolute neutrophils 12.31, CMP largely within normal limits, lipase within normal limits. Radiologist report that no visualized kidney stone noted however there is a dilated ureter on the right side for possible noncalcified stone, previously passed stone. See official report. Discussed results with patient who verbalized understanding. I did offer pain medication once again which she refused. I did send patient home with cephalexin 5 mg twice daily x7 days. First dose was given here in the department. This text was generated using GILUPIation system, please disregard any oddities of phrase or misspellings. Medical Records Medical records reviewed: Yes I reviewed the patient's medical records. Imaging Data Radiologic Study: Imaging: CT Scan Radiologist's impression: COMPARISON: CT CT ABDOMEN PELVIS W from 06/10/2020 FINDINGS: ABDOMEN: Lung Bases: Normal where visualized. Liver: Normal density. There is again seen a small cyst in the posterior segment of the right lobe of the liver. Gallbladder and biliary tract: No radiodense calculus or biliary ductal dilation. Pancreas: Normal density, no abnormal calcifications or inflammatory process. Spleen: Normal. Kidneys: Normal size, contour and axis.No radiodense stones are seen. There is mild dilatation of the right ureter with surrounding inflammation. No masses seen. Adrenal glands: No mass is seen. Lymph nodes: Within normal limits. Abdominal Aorta: Abdominal portion non-dilated. PELVIS: Bladder:Symmetric distention, no gross wall thickening. Bowel: No obstruction or bowel wall thickening. Appendix is unremarkable. Peritoneal cavity: No ascites, collection or mesenteric inflammatory response. No free air. Reproductive organs: Within normal limits. Bones: Within normal limits. Soft Tissues: Within normal limits. IMPRESSION: 1. Mild dilatation of the right ureter with mild surrounding inflammation. No radiopaque stone is seen in the renal collecting system. The findings may represent a recently passed stone, non radiopaque stone or inflammation/infection. Please correlate clinically. 2. Results of this exam have been verbally communicated with provider. Lab Data Lab results reviewed: Yes I reviewed the patient's lab results. Labs: 06/30/21 09:40 Urine - Reflex from Ua Urine Culture - Pending Laboratory Tests Range/Units 06/30/21 06/30/21 06/30/21 09:40 09:55 09:55 WBC (4.4-10.8) 10^3/uL 15.01 H RBC (3.93-5.22) 10^6/uL 4.85 Hgb (11.2-15.7) g/dL 13.6 Hct (36.0-46.0) % 41.5 MCV (80-95) fL 86 MCH (27.0-33.0) pg 28.0 MCHC (32.0-36.0) % 32.8 RDW (11.7-14.6) % 12.1 Plt Count (130-400) 10^3/uL 280 MPV (8.0-11.0) fL 10.5 Immature Gran % 0.3 Neutrophils % 82.0 Lymphocytes % 10.5 Monocytes % 6.6 Eosinophils % 0.3 Basophils % 0.3 Nucleated RBC % (0.0-0.3) % 0.0 Absolute Neutrophils (1.2-6.7) 10^3/uL 12.31 H Absolute Lymphocytes (1.2-3.4) 10^3/uL 1.58 Absolute Monocytes (0.1-0.8) 10^3/uL 0.99 H Absolute Eosinophils (0.0-0.7) 10^3/uL 0.05 Absolute Basophils (0.0-0.2) 10^3/uL 0.05 Sodium (136-145) mmol/L 136 Potassium (3.5-5.1) mmol/L 3.8 Chloride (98-107) mmol/L 102 Carbon Dioxide (21.0-32.0) mmol/L 26.1 Anion Gap (3-11) mmol/L 7.9 BUN (7-18) mg/dL 9 Creatinine (0.55-1.02) mg/dL 0.7 Estimated GFR/1.73 m2 (mL/min/1.73m2) >= 60.00 Glucose (74-106) mg/dL 98 Calcium (8.5-10.1) mg/dL 8.9 Magnesium (1.8-2.4) mg/dL 2.4 Total Bilirubin (0.2-1.0) mg/dL 0.7 AST (15-37) U/L 11 L ALT (14-59) U/L 16 Alkaline Phosphatase (46-116) U/L 65 Total Protein (6.4-8.2) g/dL 8.0 Albumin (3.4-5.0) g/dL 4.1 Lipase (73-393) U/L 129 Urine Color (Yellow) Yellow Urine Clarity (Clear) Sl Cloudy Urine pH (5-8) 7.0 Ur Specific [place] (1.005-1.025) >= 1.030 H Urine Protein (Negative) mg/dL Negative Urine Ketones (Negative) mg/dL Negative Urine Blood (Negative) Trace-intact H Urine Nitrite (Negative) Negative Urine Bilirubin (Negative) Negative Urine Urobilinogen (Up TO 0.2) EU/dL 0.2 Ur Leukocyte Esterase (Negative) Trace H Urine RBC (0-2) HPF 0-2 Urine WBC (0-5) HPF 5-10 Ur Epithelial Cells (Negative) HPF Few Urine Crystals (Negative) HPF Negative Urine Bacteria (Negative) HPF Few Urine Casts (Negative) LPF Negative Urine Mucus (Negative) Negative Ur Culture Indicated? Yes Urine Glucose (Negative) mg/dL Negative HPI General Mode of arrival: ambulatory . Date/Time Provider Initiated Documentation: 06/30/21 09:31 . Limitations to Documentation: no limitations . Information obtained by: patient, RN notes reviewed and old records reviewed . HPI Narrative: 30-year-old female presents to the ER with a chief complaint of right flank pain which began last night. Patient reports that she thought she strained her back had some back pain last night. She states that it worsened prior to sleep and now has radiated to the right upper quadrant abdomen. She does endorse body aches and chills denies any fever. Denies any vomiting diarrhea does endorse some nausea. Denies any problems urinating or burning with urination. No known injuries no heavy lifting. She has not taken any medications prior to arrival. Related Data Home Medications Medication Instructions Recorded Confirmed cephalexin 500 mg tablet 500 mg PO BID 7 days #14 tabs 06/30/21 Previous Rx's Medication Instructions Recorded cephalexin 500 mg tablet 500 mg PO BID 7 days #14 tabs 06/30/21 Allergies Allergy/AdvReac Type Severity Reaction Status Date / Time No Known Allergies Allergy Unverified 06/30/21 09:36 General Stated Complaint: Abd Prob LINDSEY: 3 Review of Systems All systems reviewed & are unremarkable except as noted in HPI and below Cardiovascular Cardiovascular: Denies chest pain and Denies dyspnea Respiratory Respiratory: Denies dyspnea Gastrointestinal Gastrointestinal: Reports as per HPI, Reports abdominal pain, Denies change in stool character, Denies diarrhea, Reports nausea and Denies vomiting Genitourinary Genitourinary: Denies difficulty voiding and Denies urinary urgency Musculoskeletal Musculoskeletal: Reports back pain, Reports myalgias and Denies radiating pain into limb PFSH All Active Problems (Updated 06/30/21 @ 11:48 by Rubi Galeano) Anxiety and depression (Chronic) 41 weeks gestation of (Acute 04/25/14) Abdominal pain (Acute) Colitis (Acute) Acute right flank pain (Acute) UTI (urinary tract infection) (Acute) Social History Smoking/Tobacco Use Status: Never Smoking risk assessment performed?: Yes Alcohol Intake: current Alcohol Intake frequency: holidays/special occasions only Drug use: Never Substance use type: does not use Do you feel safe at home: Yes Do you feel safe in your relationship?: Yes Exam Narrative Exam Narrative: Constitutional: Alert and oriented x3. Appears stated age. Normal body habitus. Head: Normocephalic, no trauma. Eyes: Pupils PERRL, Red reflex noted, EOM's intact. Eyelids symmetrical without lesions, discharge, or swelling. ENT: Bilateral TM's WNL, External ear normal to inspection, no mastoid TTP, swelling, or erythema, Nasal turbinates WNL, no nasal discharge. Normal dentition, Posterior pharynx WNL, no exudate. Chest: RRR, Normal S1, S2, distal pulses intact. Resp: Lungs clear to auscultation bilaterally, no wheezes, rales, or rhonchi. Abdomen: Soft, non-distended, Normoactive bowel sounds all 4 quads. Nontender with palpation however with right upper quadrant abdominal palpation she reports pressure in her back. Musculoskeletal: Normal gait, 5/5 strength to all four extremities. Skin: No suspicious rashes or lesions. Capillary refill less than 2 sec. Neurologic: Cranial nerves II-XII intact. Alert and oriented x 3. Motor: No deficits noted. Sensory: Intact bilaterally all 4 extremities. Reflexes: DTR's intact bilaterally.. Hematologic/Lymphatic: No ecchymosis, no lymphadenopathy. Course Vital Signs Vital signs: Vital Signs Temperature 36.3 C L 06/30/21 09:33 Pulse 125 H 06/30/21 09:33 Respiratory Rate 16 06/30/21 09:33 Blood Pressure 131/85 06/30/21 09:33 Pulse Oximetry 97 06/30/21 09:33 Temperature 36.3 C L 06/30/21 09:33 Temperature Source Temporal Artery Scan 06/30/21 09:33 Pulse 125 H 06/30/21 09:33 Respiratory Rate 16 06/30/21 09:33 Respiratory Effort 06/30/21 09:33 Blood Pressure 131/85 06/30/21 09:33 Blood Pressure Position Sitting 06/30/21 09:33 Pulse Oximetry 97 06/30/21 09:33 Oxygen Delivery Method Room Air 06/30/21 09:33 Oxygen Flow Rate 0 06/30/21 09:33 Pain Level 8 06/30/21 09:33 Lab/Test Results Lab/Test Results: POC- Test(urine) Negative
[2021-06-30 09:48] LABS: Bilirubin Negative (Negative); Blood Trace-intact (Negative); Clarity Sl Cloudy (Clear); Glucose Negative (Negative); Ketones Negative (Negative); Leukocyte Esterase Trace (Negative); Nitrite Negative (Negative); Specific Gravity >= 1.030 (1.005-1.025); Urobilinogen 0.2 EU/dL (Up TO 0.2)
[2021-06-30 09:54] LABS: RBC 0-2 HPF (0-2)
[2021-06-30 09:55] LABS: Bacteria Few HPF (Negative); C & S Indicated? Yes; Casts Negative LPF (Negative); Crystals Negative HPF (Negative); Epithelial Cells Few HPF (Negative); Mucus Negative (Negative)
[2021-06-30 09:59] LABS: Abs Immature Grans 0.05 10^3/uL (0.0-0.06); Absolute Eosinophil Count 0.05 10^3/uL (0.0-0.7); Absolute Monocyte Count 0.99 10^3/uL (0.1-0.8); Absolute Neutrophil Count 12.31 10^3/uL (1.2-6.7); Basophils % 0.3; Eosinophils % 0.3; HCT 41.5 % (36.0-46.0); HGB 13.6 g/dL (11.2-15.7); Immature Grans % 0.3; Lymphocytes % 10.5; MCHC 32.8 % (32.0-36.0); MCV 86 fL (80-95); MPV 10.5 fL (8.0-11.0); Monocytes % 6.6; Platelet Count 280 10^3/uL (130-400); RBC 4.85 10^6/uL (3.93-5.22); RDW 12.1 % (11.7-14.6); WBC 15.01 10^3/uL (4.4-10.8)
[2021-06-30 10:00] LABS: Absolute Basophil Count 0.05 10^3/uL (0.0-0.2); Absolute Lymphocyte Count 1.58 10^3/uL (1.2-3.4)
[2021-06-30] MEDS: Normal Saline 1,000 ML 1000 ML IV (10:04)
[2021-06-30 10:12] LABS: ALT 16 U/L (14-59); AST 11 U/L (15-37); Albumin 4.1 g/dL (3.4-5.0); Alkaline Phosphatase 65 U/L (46-116); Anion Gap 7.9 mmol/L (3-11); BUN 9 mg/dL (7-18); Bilirubin, Total 0.7 mg/dL (0.2-1.0); CO2 26.1 mmol/L (21.0-32.0); CREATININE 0.7 mg/dL (0.55-1.02); Calcium 8.9 mg/dL (8.5-10.1); Chloride 102 mmol/L (98-107); Glucose 98 mg/dL (74-106); Lipase 129 U/L (73-393); Magnesium 2.4 mg/dL (1.8-2.4); Potassium 3.8 mmol/L (3.5-5.1); Sodium 136 mmol/L (136-145)
[2021-06-30] MEDS: Cephalexin 500 MG CAP PO (11:49)
[2021-06-30 11:54] VITALS: BP 112/64; PULSE 62; RESP 16; TEMP 36.8; O2SAT 98
== END 2021-06-30 11:53 | disposition home or self-care (01) ==
PROVIDERS: Emergency Provider Registered Nurse Emergency; PCP Internal Medicine
DX: R10.9 Unspecified abdominal pain (principal); M54.9 Dorsalgia, unspecified; N39.0 Urinary tract infection, site not specified; B96.20 Unspecified Escherichia coli [E. coli] as the cause of diseases classified elsewhere
CPT/HCPCS: 36415; 80053; 81025; 83690; 87077; 96360; 99284; 74176; 81003; 81015; 83735; 85025; 87086; 87186; 99283

== ENCOUNTER 2021-10-23 03:38 | Outpatient (CLI) | payer MEDICAID, SELFPAY ==
[2021-10-23 11:48] LABS: Abs Immature Grans 0.02 10^3/uL (0.0-0.06); Absolute Basophil Count 0.04 10^3/uL (0.0-0.2); Absolute Eosinophil Count 0.11 10^3/uL (0.0-0.7); Absolute Neutrophil Count 4.94 10^3/uL (1.2-6.7); Basophils % 0.5; Eosinophils % 1.4; HCT 39.4 % (36.0-46.0); HGB 12.7 g/dL (11.2-15.7); Immature Grans % 0.3; Lymphocytes % 28.5; MCH 27.6 pg (27.0-33.0); MCHC 32.2 % (32.0-36.0); MCV 86 fL (80-95); MPV 10.8 fL (8.0-11.0); Monocytes % 5.2; Neutrophils % 64.1; Platelet Count 292 10^3/uL (130-400); RDW 12.5 % (11.7-14.6); WBC 7.71 10^3/uL (4.4-10.8)
[2021-10-23 12:41] LABS: Source Nasal/Nares
[2021-10-23 16:05] LABS: COVID-19 PCR Negative (Negative)
== END 2021-10-23 03:39 | disposition home or self-care (01) ==
LOC: LBO 03:38
PROVIDERS: PCP Internal Medicine; Visit Provider Obstetrics & Gynecology
DX: Z01.818 Encounter for other preprocedural examination (principal); Z20.822 Contact with and (suspected) exposure to COVID-19
CPT/HCPCS: 36415; 86850; 86900; 86901; 87635; 85025

== ENCOUNTER 2021-10-25 08:41 | Day surgery (SDC) | payer MEDICAID, SELFPAY ==
[2021-10-25] VITALS (7 sets, daily range): BP systolic 91–106; BP diastolic 49–82; PULSE 52–78; RESP 12–18; TEMP 36.2–36.5; O2SAT 94–98; BMI 29.2
[2021-10-25] MEDS: Lactated Ringers 1,000 ML 125 ML IV (09:27)
--- NOTE | 2021-10-25 09:29 | ANES.PREOP_ITS ---
General Info Date of Service Date Performed: 10/25/21 Height: 5 ft 1 in Weight: 70.307 kg Body Mass Index (BMI): 29.2 Surgical Procedure: Operation Date: 10/25/21 11:25 Proposed Procedure Side Surgeon p Salpingectomy Laparoscopic Bilateral Mimi Forrester MD Meds Allergies and Home Medications Allergies Allergy/AdvReac Type Severity Reaction Status Date / Time No Known Allergies Allergy Unverified 10/23/21 10:49 Home Medication Medication Instructions Recorded bupropion HCl 100 mg tablet,12 hr 100 mg PO BID 09/06/21 sustained-release etonogestrel 68 mg subdermal 1 implant subdermal ONCE 09/06/21 implant (Nexplanon) naltrexone 50 mg tablet 12.5 mg PO BID 09/06/21 fluticasone propionate 50 2 spray intranasal DAILY 30 days 09/11/21 mcg/actuation nasal #16 grams spray,suspension (Flonase Allergy Relief) ciprofloxacin 0.3 %-dexamethasone 4 drp otic (ear) BID 10 days #7.5 10/09/21 0.1 % ear drops,suspension mL (Ciprodex) Current Visit Medications: Current Medications Generic Name Dose Route Start Last Admin Trade Name Freq PRN Reason Stop Dose Admin Ringer's Solution 1,000 mls @ 125 mls/hr 10/25/21 06:00 10/25/21 09:27 IV 11/23/21 23:59 125 mls/hr INFUSION AURELIANO Administration IV Miscellaneous Supplies 1 each 10/25/21 06:00 Iv Access IV 11/23/21 23:59 DIRECTED AURELIANO Sodium Chloride 0 ml 10/25/21 06:00 Normal Saline Flush 10 Ml Syr IV 11/23/21 23:59 PRN PRN Sodium Chloride 0 ml 10/25/21 06:00 Normal Saline 10 Ml Vial IJ 11/23/21 23:59 DIRECTED PRN Sterile Water 0 ml 10/25/21 06:00 Water,Injection,Sterile 10 Ml Vial IJ 11/23/21 23:59 DIRECTED PRN PFSH Active Problems Active Problems: Problem Status Onset Code Sterilization consult Z30.09 Irregular bleeding N92.6 Otitis externa of right ear H60.91 Anxiety and depression F41.8 Abdominal pain R10.9 Colitis K52.9 Medical History Medical History Acid reflux Body mass index 28.0-28.9, adult Decreased hearing of right ear Diarrhea Liver cyst Migraine headache Patent pressure equalization (PE) tube Postnasal drip Primary focal hyperhidrosis Snoring Temporal lobe epilepsy Vitamin D deficiency Surgical History Surgical History S/P tympanostomy tube placement Tobacco Smoking/Tobacco Use Status: Never Alcohol Alcohol Intake: current Alcohol intake frequency: holidays/special occasions only Substance Use Substance use: Never Substance use type: does not use Prental History History 4 Para 2 Hx # Term Pregnancies Multiple births Hx # Pregnancies Ectopic pregnancies AB induced 2 Hx Number of Living Children 2 AB spontaneous Past Pregnancies Del. Date GA/Weeks # Preg Succ Route Wgt Sex Labor Lgth Anesth esia Location [facility] 12/13/09 No Yes vaginal 4167.38 g Male [facility] 04/26/14 No Yes vaginal 2608.156 g Female [facility] Vital Signs and Lab Results Vital Signs Most Recent Vital Signs in EMR: Most Recent Vital Signs Temp Pulse Resp BP Pulse Ox 36.5 C 68 18 105/77 98 10/25/21 08:59 10/25/21 08:59 10/25/21 08:59 10/25/21 08:59 10/25/21 08:59 Point of Care Results Point of Care Results: POC- Test(urine) Negative 10/25/21 08:59 Lab Results Blood Type / Crossmatch: Patient ABO/Rh B Positive 10/23/21 Antibody Screen NEGATIVE 10/23/21 Complete Blood Count: White Blood Count 7.71 10^3/uL (4.4-10.8) 10/23/21 11:30 Red Blood Count 4.60 10^6/uL (3.93-5.22) 10/23/21 11:30 Hemoglobin 12.7 g/dL (11.2-15.7) 10/23/21 11:30 Hematocrit 39.4 % (36.0-46.0) 10/23/21 11:30 Platelet Count 292 10^3/uL (130-400) 10/23/21 11:30 Complete Metabolic Panel: 2 No Data to Display Liver Function Panel: No Data to Display Coagulation Panel: No Data to Display Cardiac Panel: No Data to Display Arterial Blood Gas: No Data to Display Venous Blood Gas: No Data to Display Pancreas Panel: No Data to Display Thyroid Panel: No Data to Display Infectious Disease: Coronavirus (COVID-19)(PCR) Negative (Negative) 10/23/21 10:55 Coronavirus 2019 Source Nasal/Nares 10/23/21 10:55 Blood Cultures: No Data to Display Toxicology Panel: No Data to Display Panel: No Data to Display Anesthesia Assessment and Plan Anesthesia History Personal History: No History of Anesthesia Complications Family History: No Family History of Anesthesia Complications Exercise Tolerance Exercise Tolerance: Metabolic Equivalents>4 Cardiac & Pulmonary Exam Cardiac Exam: Normal S1/S2 Heart Sounds Pulmonary Exam: Clear Bilateral Breath Sounds Implantable Cardiac Device Does patient have a Pacemaker or an ICD?: No Airway Exam Known Difficult Airway: No Mallampati Class: 3 Mouth Opening: Narrow (< 3cm) Thyromental Distance: Greater than 3 cm Neck Range of Motion: Full ROM Neck Circumference: Normal Teeth Condition: Normal Dentition ASA Classification ASA Score: ASA 2 Emergency Case?: No NPO Status NPO Status: NPO Clears >2 hours, Solids >8 hours Status Status: Negative HCG Anesthesia Plan Resuscitation Status: Full Code Anesthesia Technique: General Anesthesia Airway Planned: Endotracheal Tube Monitors Used: Standard Monitors Preoperative Comments:: 30 yo female for Lap salping. Sig PMHx: GERD (states on list, but beelives her symptoms where related to her post nasal drip), post nasal drip ( r/t long time ear infection, flonase), epilepsy (on list, denies any knowledge of this), anxiety/depression (bupropion), never smoker, occ EtOH.
--- NOTE | 2021-10-25 11:01 | DSU.FORM ---
1100 Pt frustrated about waiting so long to see Surgeon and not having a clear time frame to go back to the OR, pt was told by anesthesia two different times. This nurse inquired with [employer] employee services manager about Surgeon and after a couple phone calls discovered surgeon is assisting in the OR and it will be approx 30-45min. This message was relayed to pt, she still feels frustrated for the length of time waiting but continues to be pleasant w/this nurse. This nurse has checked on pt at least every 30min since arrival. Pt informed she can get up to side of the bed as needed and can use our ipad or her iphone as long as she'd like until going back to the OR. Pt denies each time that she won't need the ipad and denies need to get up each time, or reposition. Pt's frustration passed on to [employer] employee services manager by this nurse. BRONSON
--- NOTE | 2021-10-25 11:11 | DSU.FORM ---
[address] Forrester at this time, this nurse spoke to surgeon about pt wanting explanon device in LUE out today in OR, surgeon aware but said she spoke to pt in the office that she will do in the office at her follow up. STEFFENB
[2021-10-25] MEDS: Bupivacaine 0.25% Pres-Free 30 ML VIAL (11:57)
--- NOTE | 2021-10-25 12:11 | FALL_PTH ---
PATIENT: Ulises Jimenez LOC: [facility] U#:[id number] AGE/SX: 30/F ROOM: RE10/25/[address]: Mimi Forrester MD : 1990 BED: DIS: 10/25/2021 SPEC #: [id number] RECD: 10/25/21 12:54 STATUS: ISAC REQ #: [id number] ROSE: 10/25/21 12:[address]: Mimi Forrester DEPT: Surgical Specimen RECD BY: Elizabeth Fisher ENTERED: 10/25/21 12:56 SP TYPE: Fall OTHR DR: Gamal Bacon Tissues: 1 - FALLOPIAN TUBE (STERILIZATION) Procedures: GROSS AND MICRO LEVEL 2 Comments: [id number]
[2021-10-25] MEDS: fentaNYL 100 MCG/2 ML VIAL IVP ×2 (12:51→13:00)
--- NOTE | 2021-10-25 13:22 | W.PM.OP ---
Date of service: 10/25/21 Time of Service: 11:30 Operative Note Operative Note DATE OF PROCEDURE: 10/25/21 PRE-OP DIAGNOSIS: Desires permanent sterilization, Abnormal uterine bleeding POST-OP DIAGNOSIS: same PROCEDURE: Laparoscopic Bilateral Salpingectomy, Insertion of Intrauterine device SURGEON: Mimi Forrester ASSISTING SURGEON: Sarah Pepper Refer to Anesthesia Record ESTIMATED BLOOD LOSS: 20 COMPLICATIONS: None Patient was transported to: PACU Patient's condition: stable Indications: Pt desires permanent sterilization. She is also experience irregular bleeding and desires Liletta IUD insertion. Findings: Normal appearing uterus, ovaries and tubes but with significant increased pelvic vasculature. Procedure Description: After informed consent was signed the patient was taken to the operating room and given general anesthesia.? SCDs were placed on her legs.? She was prepped and draped in the dorsal lithotomy position in the [facility].? A time out was performed. A cano catheter was introduced into her bladder. A speculum was placed into the vagina to expose the cervix and a GreenLancerlka manipulator was placed into the cervix. The speculum was removed. Gloves were changed and attention was turned to the abdomen. The infraumbilical fold was grasped and injected with 0.25% marcaine with epinephrine. A 5mm incision was made in the infraumbilical fold with the scalpel. A hemostat was used to bluntly dissect the subcuticular layers. The visiport was then assembled and used to enter the abdomen under direct visualization. Once entrance to the abdominal cavity was confirmed the CO2 was turned on and the abdomen was insufflated. Two lateral 5mm ports were then placed under direct visualization. The left tube was identified and followed to the fimbriated end. The tube was grasped and elevated and the mesosalpinx was clamped, cauterized and cut with the ligasure device. This was continued along the length of the tube. The proximal end of the tube was then transected with the ligasure. Good hemostasis was noted. The right tube was then identified and followed to the fimbriated end. The tube was grasped and elevated and the mesosalpinx was clamped, cauterized and cut with the ligasure device. The was continued along the length of the tube. The proximal end of the tube was then transected with the ligasure. Good hemostasis was noted on both sides. The ports were removed. The gas was released from the abdomen. The fascia of the umbilical incision was identified and closed with a [id number] suture of 0 vicryl. The skin incisions were then closed with 4-0 vicryl. Mastisol and steristrips were placed. The manipulator was removed. The patient was placed back into the supine position.? She was moved to the stretcher and taken to the recovery room in stable condition.
--- NOTE | 2021-10-25 13:40 | W.PM.DSUDISC ---
Discharge Plan Disposition Patient Disposition: HOME Condition: Good Discharge Details Reason For Visit: Surgical sterilization Attending Provider: Mimi Forrester Primary Care Provider: Gamal Bacon Home Meds and New Rx's Prescriptions: New oxycodone 5 mg tablet 5 mg PO Q6H PRNQty: 4 0RF Continued fluticasone propionate [Flonase Allergy Relief] 50 mcg/actuation spray,suspension 2 spray intranasal DAILY 30 Days Qty: 16 6RF Rx Instructions: administer into each nostril ciprofloxacin-dexamethasone [Ciprodex] 0.3-0.1 % drops,suspension 4 drp otic (ear) BID 10 Days Qty: 7.5 1RF bupropion HCl 100 mg tablet sustained-release 12 hr 100 mg PO BID naltrexone 50 mg tablet 12.5 mg PO BID Nexplanon 68 mg implant 1 implant subdermal ONCE Rx Instructions: as a single dose Discharge Instructions Stand Alone Forms: Anesthesia Discharge Inst., DSU Post Senior Compensation Consultant SurgeryW/Incision, Traah Mcintyre (DSU) Referrals: Mimi Forrester MD [ [facility] STAFF PHYSICIAN] - 11/07/21 9:20 am Activity:: Avoid lifting >20lbs Remove Dressings/Wound Care:: 24 hours Shower/Bathe:: 24 hours Diet:: As Tolerated Discharge Orders Discharge Orders: Discharge Order (Routine); Ordered 10/25/21 Ordered By: Mimi Forrester DS: Diagnosis Discharge Diagnosis (1) Encounter for sterilization: Status: Acute
--- NOTE | 2021-10-25 13:47 | W.ANESPOSTOP ---
Postoperative Evaluation Date, Time and Location Date Performed: 10/25/21 Time Performed: 13:47 Patient Location: Day Surgery Unit Vital Signs Most Recent Imported Vital Signs: Most Recent Vital Signs Temp Pulse Resp BP Pulse Ox 36.2 C L 52 L 16 101/65 96 10/25/21 13:22 10/25/21 13:22 10/25/21 13:22 10/25/21 13:22 10/25/21 13:22 Pain Score Most Recent Pain Score: Most Recent Pain Score Pain Level 5 10/25/21 13:22 Assessment Mental Status: Awake (Alert & Oriented to Patient Baseline) Airway and Respiratory Function: Patent airway with normal (patient baseline) respiratory exam Cardiovascular Function: Hemodynamically Stable Hydration Status: Adequately Hydrated Nausea & Vomiting: No Nausea or Vomiting Pain: Pain is tolerable per patient Peripheral Nerve Block: Patient did not receive a nerve block
== END 2021-10-25 14:43 | disposition home or self-care (01) ==
PROVIDERS: PCP Internal Medicine; Visit Provider Obstetrics & Gynecology
PROC: (CPT 58661; principal; 2021-10-25 11:15)
DX: Z30.2 Encounter for sterilization (principal); F41.8 Other specified anxiety disorders; G43.909 Migraine, unspecified, not intractable, without status migrainosus; N93.8 Other specified abnormal uterine and vaginal bleeding
CPT/HCPCS: 58661; 58300; 88302; J1100; J1885; J2250; J2405; J2704; J3010

== ENCOUNTER 2022-07-16 13:07 | Outpatient (CLI) | payer MEDICAID, SELFPAY ==
--- NOTE | 2022-07-16 11:15 | DI.US_ITS ---
Exam(s) US BREAST RT COMPLETE MAMMO DIAGNOSTIC BI EXAM: MAMMO DIAGNOSTIC BI and U/S breast RT complete CLINICAL HISTORY: breast masses N63.0 LUMP IN BREAST N64.4 MASTODYNIA. TECHNIQUE: Craniocaudal and mediolateral oblique Full Field Digital Mammography views with Computer Aided Diagnosis followed by Tomosynthesis and right breast ultrasound. COMPARISON: This is a baseline examination. There are no priors for comparison. FINDINGS: Mammography/Tomosynthesis: Masses/Architectural Distortion: None seen. Microcalcifictions: No suspicious pleomorphic-type are seen. Skin Thickening/Nipple Retraction: None. Right complete breast US: Echotexture: Normal appearance of the glandular tissue. Shadowing: No suspicious foci. Cyst: None. Solid lesions: None seen. Ductal dilation: None. IMPRESSION: 1. No evidence of malignancy is noted. 2. Unless there is more urgent need, screening mammography, as per [place] [employer] guidelines . 3. The findings were discussed with the patient on the date of the examination. BI-RADS Category 1 - Negative Breast Density - Category B - Scattered areas of fibroglandular density Breast density Category C or D implies that the patient has dense breast tissue. Dense breast tissue can make it harder to find cancer on a mammogram. Dense breast tissue is also associated with an incr eased risk of breast cancer. This information about the result of the mammogram report was provided to the patient to raise their awareness. Use this report when you speak with the patient about their risks for breast cancer, which includes their family history. At that time, you may recommend additional screening tests (Ultrasoun d or MRI) as these tests may add significant information. A negative radiographic report should not delay biopsy if a dominant or clinically suspicious mass is present. Up to ten percent of cancers are not identified on mammography. A negative report may reinforce clinical impression. Adenosis and dense breasts may obscure an underlying neoplasm. False positive reports average 6 to 10%. Patient will receive a letter notifying them of these results.
== END 2022-07-16 13:27 ==
LOC: DI 13:08
PROVIDERS: PCP Internal Medicine; Visit Provider Advanced Practice Midwife
DX: N63.10 Unspecified lump in the right breast, unspecified quadrant (principal); N64.4 Mastodynia; Z12.31 Encounter for screening mammogram for malignant neoplasm of breast
CPT/HCPCS: 76642; 77062; 77066; G0279

== ENCOUNTER 2023-02-09 05:12 | Emergency (ER) | payer MEDICAID, SELFPAY ==
[2023-02-09 05:16] VITALS: BP 134/82; PULSE 104; RESP 16; TEMP 36.7; O2SAT 100
--- NOTE | 2023-02-09 06:00 | W.ED.GENAD ---
Discharge Plan Disposition Patient Disposition: Home Condition: Good Discharge Details Chief Complaint: PsychEval Clinical Impression: Depression Primary Care Provider: Gamal Bacon ED Provider: Christian Colon Home Meds and New Rx's Prescriptions: No Action valacyclovir [Valtrex] 1 gram tablet 1,000 mg PO DAILY Discharge Instructions Instructions: Depression (ED) Additional Instructions: At this time we have agreed with a disposition home. Please follow the safety plan that you have agreed to. Please follow-up closely with your mental health advocates. If you notice any worsening of your symptoms, or any new symptoms such as vomiting, diarrhea, fever, chills, shortness of breath, chest pain, numbness, weakness, or fainting , please return immediately to the emergency department for reevaluation. Please follow up with your primary care provider as soon as possible for reassessment and reevaluation. As always, it was a pleasure participating in your medical care today. Medical Decision Making 32-year-old female with a past medical history of depression in the past, presents today for evaluation of depression. Patient states that she has been quite sad and depressed for the last week. She stopped taking her depression medications and stopped seeing her counselor about 2 years ago. This evening she took her boyfriend's gun and said she was going to kill herself. She gave it up without any confrontation. She states that she does not even know how to use a firearm. Out of concern she came here tonight with her boyfriend for help and assistance. Currently she states that she does not want to end her life, she does not want to hurt anyone else. She states that it was a stupid decision and regrets what she did. She states she really just does not want to feel sad anymore. She denies any auditory or visual hallucinations. She denies any fever or chills. She did have a mild drink of alcohol last night. She denies any other complaints at this time Exam demonstrates well-appearing female, she is slightly tearful. No other focal abnormalities. Patient has been medically evaluated and is deemed medically clear at this time. Smart form has been filled out. Will contact mental health for their formal assessment. 6:35 AM Patient has been seen and assessed by the mental health advocates. They do feel that the patient is stable and safe for discharge at this time. Safety plan has been enacted and the patient, her significant other, and the mental health advocate feel comfortable with discharge home. Patient will be discharged with close follow-up with mental health advocacy group. Patient agrees with plan. I have extensively reviewed the treatment plan and discharge instructions with the patient and their family. I have addressed all patient concerns at this time. The patient and family was made aware of what symptoms to monitor for that would warrant a return to the emergency department. Discussed the plan with the patient and family, they demonstrate verbal understanding and agreement with our assessment and plan at this time. The documentation in this chart was dictated using [employer] dictation software. Please excuse any dictation errors. HPI General Date/Time Provider Initiated Documentation: 02/09/23 05:19. HPI Narrative: 32-year-old female with a past medical history of depression in the past, presents today for evaluation of depression. Patient states that she has been quite sad and depressed for the last week. She stopped taking her depression medications and stopped seeing her counselor about 2 years ago. This evening she took her boyfriend's gun and said she was going to kill herself. She gave it up without any confrontation. She states that she does not even know how to use a firearm. Out of concern she came here tonight with her boyfriend for help and assistance. Currently she states that she does not want to end her life, she does not want to hurt anyone else. She states that it was a stupid decision and regrets what she did. She states she really just does not want to feel sad anymore. She denies any auditory or visual hallucinations. She denies any fever or chills. She did have a mild drink of alcohol last night. She denies any other complaints at this time Related Data Home Medications Medication Instructions Recorded Confirmed valacyclovir 1 gram tablet 1,000 mg PO DAILY 07/13/22 02/09/23 (Valtrex) Allergies Allergy/AdvReac Type Severity Reaction Status Date / Time No Known Allergies Allergy Unverified 02/09/23 05:30 General Stated Complaint: PsychEval LINDSEY: 2 Review of Systems All systems reviewed & are unremarkable except as noted in HPI and below PFSH All Active Problems (Updated 02/09/23 @ 06:36 by Christian Colon DO) Depression (Chronic) Breast lump (Acute) Breast pain, right (Acute) Medical History Family history of breast cancer Pyelonephritis (08/19/13) Vitamin D deficiency Decreased hearing of right ear Migraine headache Temporal lobe epilepsy Primary focal hyperhidrosis Liver cyst Snoring Patent pressure equalization (PE) tube Colitis Anxiety and depression Surgical History History of tubal ligation laparoscopic b/l salpingectomy 10/25/21 S/P tympanostomy tube placement Family History Paternal Grandmother Breast cancer Social History Smoking/Tobacco Use Status: Never Smoking risk assessment performed?: Yes Alcohol Intake: current Alcohol Intake frequency: holidays/special occasions only Drug use: Never Substance use type: does not use Do you feel safe at home: Yes Do you feel safe in your relationship?: Yes Female Reproductive History Menstrual control method: implanted History History 4 Para 2 Hx # Term Pregnancies Multiple births Hx # Pregnancies Ectopic pregnancies AB induced 2 Hx Number of Living Children 2 AB spontaneous Past Pregnancies Del. Date GA/Weeks # Preg Succ Route Wgt Sex Labor Lgth Anesthesia Location Prov Complic 12/13/09 No Yes vaginal 4167.38 g Male [facility] 04/26/14 No Yes vaginal 2608.156 g Female [facility] Exam Narrative Exam Narrative: 1.Const: Well-nourished, Well-developed, appearing stated age 2.Eyes: PERRL, no conjunctival injection, and symmetrical lids. 3.ENT: Atraumatic external nose and ears. Moist MM. Neck: Symmetric, trachea midline, No thyromegaly. 4.CVS: +S1/S2, No murmurs or gallops. Peripheral pulses 2+ and equal in all extremities. Brisk capillary refill in all extremities. 5.RESP: Unlabored respiratory effort. Clear to auscultation bilaterally. No wheezes rales or rhonchi 6.GI: Soft, Nontender/Nondistended, No hepatosplenomegaly. No guarding or rebound. 7.MSK: Normocephalic/Atraumatic, Extremities w/o deformity or ttp No cyanosis or clubbing, Normal movement of all extremities 8.Skin: Warm, Dry. No rashes or lesions. 9.Neuro: target worker II-XII grossly intact. Sensation grossly intact, no focal neurologic deficits. 10.Psych: (AAO) x3. Appropriate mood and affect Course Vital Signs Vital signs: Vital Signs Temperature 36.7 C 02/09/23 05:16 Pulse 104 H 02/09/23 05:16 Respiratory Rate 16 02/09/23 05:16 Blood Pressure 134/82 02/09/23 05:16 Pulse Oximetry 100 02/09/23 05:16 Temperature 36.7 C 02/09/23 05:16 Temperature Source Temporal Artery Scan 02/09/23 05:16 Pulse 104 H 02/09/23 05:16 Respiratory Rate 16 02/09/23 05:16 Blood Pressure 134/82 02/09/23 05:16 Blood Pressure Position Sitting 02/09/23 05:16 Pulse Oximetry 100 02/09/23 05:16 Oxygen Delivery Method Room Air 02/09/23 05:16 Oxygen Flow Rate 0 02/09/23 05:16 Pain Level 0 02/09/23 05:16
== END 2023-02-09 06:50 | disposition home or self-care (01) ==
LOC: ER 06:52
PROVIDERS: Emergency Provider Student in an Organized Health Care Education/Training Program; PCP Internal Medicine
DX: F32.A Depression, unspecified (principal)
CPT/HCPCS: 99284

== ENCOUNTER 2023-05-09 16:23 | Outpatient (REF) | payer MEDICAID, SELFPAY ==
--- NOTE | 2023-05-09 16:00 | PAPFT_PTH ---
PATIENT: Ulises Jimenez LOC: [facility] U#:[id number] AGE/SX: 32/F ROOM: RE05/09/[address]: Eda Jackson : 1990 BED: DIS: 05/09/2023 SPEC #: [id number] RECD: 05/09/23 18:01 STATUS: ISAC REOliver #: [id number] ROSE: 05/09/23 16:[address]: Eda Jackson DEPT: [facility] Cytology RECD BY: Elizabeth Fisher ENTERED: 05/09/23 18:01 SP TYPE: PAPFT OTHR DR: Gamal Bacon Tissues: 1 - CX/ENDOCX FOR PAP SMEARS Procedures: PAP THIN PREP/UVM Screening HPV DNA PROBE Comments: [id number]
== END 2023-05-09 16:24 | disposition home or self-care (01) ==
LOC: LBN 16:23
PROVIDERS: PCP Internal Medicine; Visit Provider Advanced Practice Midwife
DX: N89.8 Other specified noninflammatory disorders of vagina (principal)
CPT/HCPCS: 88142; 87480; 87510; 87624; 87660

== ENCOUNTER 2024-01-20 17:08 | Outpatient (CLI) | payer MEDICAID, SELFPAY ==
[2024-01-20 17:19] LABS: Hemoglobin A1C 5.6 % (<5.7)
[2024-01-20 20:39] LABS: ALT 22 U/L (14-59); AST 17 U/L (15-37); Albumin 4.1 g/dL (3.4-5.0); Alkaline Phosphatase 66 U/L (46-116); Anion Gap 7.7 mmol/L (3-11); BUN 12 mg/dL (7-18); Bilirubin, Total 0.18 mg/dL (0.2-1.0); CO2 28.3 mmol/L (21.0-32.0); CREATININE 0.7 mg/dL (0.55-1.02); Chloride 105 mmol/L (98-107); Estimated GFR 117.77 (mL/min/1.73m2); Glucose 72 mg/dL (74-106); Potassium 4.2 mmol/L (3.5-5.1); Sodium 141 mmol/L (136-145); Total Protein 7.3 g/dL (6.4-8.2)
[2024-01-21 09:29] LABS: TSH 2.19 uIU/mL (0.36-3.74)
[2024-01-21 10:03] LABS: FREE T4 0.91 ng/dL (0.76-1.46)
[2024-01-21 18:07] LABS: T3,Free 4.1 pg/mL (2.8-5.3)
== END 2024-01-20 17:09 | disposition home or self-care (01) ==
LOC: LBO 17:09
PROVIDERS: PCP Internal Medicine; Visit Provider Physician Assistant Medical
DX: E16.2 Hypoglycemia, unspecified (principal); E05.90 Thyrotoxicosis, unspecified without thyrotoxic crisis or storm
CPT/HCPCS: 36415; 80053; 83036; 84439; 84443; 84481

== ENCOUNTER 2024-04-02 00:42 | Outpatient (CLI) | payer MEDICAID, SELFPAY ==
--- NOTE | 2024-04-02 06:00 | DI.US_ITS ---
Exam(s) US PELVIS TRANSVAGINAL EXAM: US PELVIS TRANSVAGINAL CLINICAL HISTORY: Pelvic pressure and pain, bloating x2 weeks,r10.2,r14.0. TECHNIQUE: Transabdominal and transvaginal pelvic ultrasound was performed using standard protocol. COMPARISON: No priors for comparison. FINDINGS: UTERUS: Position: Anteverted. Size: 8.3 long by 3.7 AP by 4.4 transverse cm Endometrium: 0.4 cm. Normal for patient's menstrual status. Myometrium: Unremarkable. Cervix: Unremarkable. OVARIES: Right: 3.5 x 2.1 x 2.7 cm Cyst or mass: No suspicious cystic or solid masses. Left: 3.3 x 2.0 x 2.9 cm Cyst or mass: No suspicious cystic or solid masses. DOPPLER: Color: Symmetric and uniform flow to both ovaries. CUL-DE-SAC: Free fluid: None. Other: None. IMPRESSION: 1. Normal-appearing uterus with endometrial stripe within normal limits. 2. Unremarkable bilateral ovaries. DATA REPOSITORY:
== END 2024-04-02 01:02 ==
LOC: DI 00:42
PROVIDERS: PCP Internal Medicine; Visit Provider Nurse Practitioner Women's Health
DX: R10.2 Pelvic and perineal pain (principal); R14.0 Abdominal distension (gaseous)
CPT/HCPCS: 76830; 76856

== ENCOUNTER 2024-06-23 01:53 | Outpatient (CLI) | payer OTHER, MEDICAID, SELFPAY ==
[2024-06-23] MEDS: Breeza Beverage 473 ML BTL PO ×2 (09:03→09:05)
[2024-06-23] MEDS: Omnipaque 350 MG/ML 50 ML BTL PO (09:04)
[2024-06-23] MEDS: Omnipaque 350 MG/ML 100 ML BTL 75 ML IJ (09:59)
[2024-06-23] MEDS: Normal Saline - Diluent 50 ML VIAL IJ (10:01)
--- NOTE | 2024-06-23 10:25 | DI.CT_ITS ---
Exam(s) CT ABDOMEN PELVIS W EXAM: CT ABDOMEN PELVIS W CLINICAL HISTORY: ? colitis? malrotation,ABD BLOATING, CHRONIC CONSTIPATION,R14.0 TECHNIQUE: Imaging Protocol: Axial computed tomography images with coronal and sagittal reformatted images were created and reviewed. CONTRAST MATERIAL: Intravenous: Omnipaque 350 Contrast volume:75 mL Oral: Yes COMPARISON: CT CT ABDOMEN PELVIS WO from 06/30/2021 FINDINGS: ABDOMEN: Lung Bases: No acute abnormality. There is a calcified granuloma in the right lower lobe. Liver: Normal density. No measurable mass. Portal, Superior Mesenteric, and Splenic Veins: Unremarkable. Gallbladder and Biliary Tract: No radiodense calculus or dilation. Pancreas: Normal density, no abnormal calcifications or inflammatory process. Spleen: Normal. Adrenals: No masses seen. Kidneys: Normal size, contour and axis. No radiodense stones or obstructive uropathy. No masses seen. Abdominal Aorta: Abdominal portion non-dilated. Bowel: No obstruction or bowel wall thickening. Appendix is unremarkable. The duodenum has a normal l ocation. Peritoneal Cavity: No ascites, collection or mesenteric inflammatory response. No free air. Lymph Nodes: Within normal limits. Bones: Within normal limits for the patient's age. Soft Tissues: Unremarkable. PELVIS: Bladder: Symmetric distention, no gross wall thickening. Reproductive Organs: Unremarkable as visualized. Incidental note is made of a corpus luteal cyst on t he right ovary. Lymph Nodes: Within normal limits. Bones: Within normal limits for the patient's age. IMPRESSION: 1. No acute abdominal or pelvic process. 2. No evidence of bowel malrotation. RADIATION DOSE DELIVERED: 513.72mGy.cm Total DLP DATA REPOSITORY: All CT scans at this facility are submitted to the National Radiology Data Registry (NRDR) Dose Index Registry (DIR) with the [place] (ACR). RADIATION OPTIMIZATION: All CT scans at this facility use at least one of these dose optimization te chniques: automated exposure control; mA and/or kV adjustment per patient size (includes targeted exa ms where dose is matched to clinical indication); or iterative reconstruction.
== END 2024-06-23 02:13 ==
PROVIDERS: PCP Internal Medicine; Visit Provider Student in an Organized Health Care Education/Training Program
DX: K59.09 Other constipation (principal); R14.0 Abdominal distension (gaseous)
CPT/HCPCS: 74177; J3490; Q9967

== ENCOUNTER 2024-07-17 05:12 | Emergency (ER) | payer OTHER, MEDICAID, SELFPAY ==
[2024-07-17 05:16] VITALS: BP 129/74; PULSE 92; RESP 16; TEMP 36.6; O2SAT 99
[2024-07-17 05:23] VITALS: BP 129/74; PULSE 92; RESP 16; TEMP 36.6; O2SAT 99
--- NOTE | 2024-07-17 05:29 | ED.GENADUL_ITS ---
Discharge Plan Disposition Patient Disposition: Home Condition: Stable Discharge Details Clinical Impression: Nausea, vomiting and diarrhea Primary Care Provider: Gamal Bacon ED Provider: Noy Newton Home Meds and New Rx's Prescriptions: No Action valacyclovir [Valtrex] 1 gram tablet 2,000 mg PO DAILY PRN Zepbound 5 mg/0.5 mL pen injector 5 mg SUBCUT .weekly Patient Comments: INJECT 5mg SUBCUTANEOUSLY WEEKLY Discharge Instructions Instructions: Diarrhea, Adult ED Additional Instructions: You were seen in the emergency department today for evaluation of diarrhea, nausea with vomiting, and abdominal pressure. In our department you had a full physical examination performed, had laboratory studies that were reassuring, with a slight elevation in your white blood cell count typically seen during vomiting, and a borderline low magnesium that you can replete through dietary sources like leafy greens and dark chocolate. Your bedside ultrasound did not show any evidence of infection or gallstones in your gallbladder. Your urine did have some blood in it, as well as many epithelial cells, and it is difficult to truly discern a UTI with this sample. Right now, your symptoms are more concerning for something like a gastroenteritis than a urinary tract infection, and I recommend supportive treatment with good hydration and nutrition, medications such as Zofran (a short course of which was provided to you today), and trialing [id number] medication such as Imodium so long as your diarrhea does not turn bloody and you do not develop a fever. Some people find that the brat diet (bananas, rice, apples, and toast) is a good way to get nutrition without irritating your stomach, as these are gentle and bland foods which are well-tolerated during gastrointestinal illnesses. You need to follow-up with your primary care provider at your scheduled appointment to discuss the symptoms, and any other concerns. Thank you for allowing us to be part of your care. HPI General Mode of arrival: ambulatory . Date/Time Provider Initiated Documentation: 07/17/24 05:15 . Limitations to Documentation: no limitations . Information obtained by: patient and old records reviewed . HPI Narrative: This is a 33-year-old female patient with history of abdominal bloating, presenting for evaluation of 2 days of nausea with vomiting and diarrhea. The patient reports that initially she was just having liquid nonbloody stools, but gradually developed pressure in her upper abdomen radiating to her right upper quadrant, as well as nonbloody vomiting. She reports that she has some pressure when she finishes urinating, and did note a small amount of blood on the tissue when she wiped today. Status post tubal ligation, no other abdominal surgeries. She has not tried any medications in the home environment for management of the symptoms. Reports no sick contacts, exposure to on sanitize water sources, recent hospitalization or antibiotic use. Has had a colonoscopy and endoscopy in the past that were reassuring, no reported abnormalities on a CT abdomen pelvis performed a few weeks ago. Related Data Home Medications ?Medication ?Instructions ?Recorded ?Confirmed valacyclovir 1 gram tablet 2,000 mg PO DAILY PRN 10/11/23 07/17/24 (Valtrex) tirzepatide (weight loss) 5 mg/0.5 5 mg subcut .weekly 07/17/24 07/17/24 mL subcutaneous pen injector (Zepbound) Allergies Allergy/AdvReac Type Severity Reaction Status Date / Time No Known Allergies Allergy Verified 07/17/24 05:25 General Stated Complaint: Nausea/Vomit/Diar LINDSEY: 3 Exam Narrative Exam Narrative: Gen: Awake and alert, in no apparent distress HEENT: Non-icteric sclera Neck: Supple Lungs: No apparent respiratory distress, normal respiratory effort. Lung sounds clear and equal CV: Appears well perfused, heart with regular rate and rhythm, strong distal pulses, no murmurs auscultated Abdomen: Non-distended, soft, tender to palpation in the right upper quadrant without rigidity, rebound, or guarding. MSK: Moves 4 extremities without apparent limitation in ROM Skin: Visualized skin without rashes, cyanosis. Neuro: Normal Gait, no obvious focal deficits or facial asymmetry. Speaks in full, clear sentences. Psych: Appropriate for situation. Course Vital Signs Vital signs: Vital Signs Pulse 92 H 07/17/24 05:16 Respiratory Rate 16 07/17/24 05:16 Blood Pressure 129/74 07/17/24 05:16 Pulse Oximetry 99 07/17/24 05:16 Temperature Source Oral 07/17/24 05:16 Pulse 92 H 07/17/24 05:23 Respiratory Rate 16 07/17/24 05:23 Blood Pressure 129/74 07/17/24 05:23 Blood Pressure Position Sitting 07/17/24 05:23 Pulse Oximetry 99 07/17/24 05:23 Oxygen Delivery Method Room Air 07/17/24 05:23 Oxygen Flow Rate 0 07/17/24 05:23 Pain Level 0 07/17/24 05:23 Medical Decision Making This is a 33-year-old female patient presenting for evaluation of abdominal pain with nausea, vomiting, and diarrhea. My differential includes but is not limited to gastroenteritis, gastritis, pancreatitis, cholecystitis, hepatitis, examination less consistent with appendicitis and diverticulitis. Considered urinary tract infection, kidney stone, patient is young and without risk factors or physical exam findings to significantly increase my concern for mesenteric ischemia or aortic pathology. Status post tubal ligation making ectopic highly unlikely, no vaginal symptoms to suggest PID/TOA. The patient is reassuringly hemodynamically appropriate. Will obtain laboratory studies to include CBC, CMP, magnesium, lipase, urinalysis, and provide the patient with a dose of Zofran for symptomatic management. I will obtain a bedside ultrasound of the right upper quadrant to evaluate for gallbladder pathology. - [id number] bedside ultrasound without obvious gallbladder pathology, though certainly views were limited in this patient. No sonographic Velazco sign appreciated. I independently interpreted the laboratory studies, which show no significant leukocytosis, (mild leukocytosis not unexpected in the setting of vomiting), anemia, or thrombocytopenia. The chemistry panel is without evidence of electrolyte abnormality, kidney dysfunction, or liver injury other than a borderline magnesium which I feel the patient is appropriately able to replete with diet. Lipase is low. Urinalysis does show some hematuria, numerous epithelial cells concerning for a dirty catch, and in the absence of urinary tract symptoms such as dysuria, frequency, I will hold on empiric antibiosis. The patient does have a scheduled primary care visit on Saturday at which time she can be reevaluated. The patient was able to p.o. challenge, and her nausea significantly improved. She has no evidence of dehydration or organ dysfunction, I feel that it is appropriate to trial conservative outpatient management. I counseled the patient on the brat diet, [id number]-rpb-[id number] medications for symptoms, provided her with a short take-home course of Zofran. At this time, the patient has had a full medical evaluation and is safe for discharge to home. They are hemodynamically stable, ambulatory, and tolerating PO. They are understanding of the follow-up plan and return precautions. They left our facility without incident. Noy Newton MD Medical Records Medical records reviewed: Yes I reviewed the patient's medical records. Lab Data Lab results reviewed: Yes I reviewed the patient's lab results. Quality:SDOH Health Related Social Needs: No Data to Display PFSH All Active Problems (Updated 07/17/24 @ 06:53 by Noy Newton MD) Nausea, vomiting and diarrhea (Acute) Abdominal bloating (Acute) Fatigue (Acute) Ear popping (Acute) Vaginal discharge (Acute) Chronic constipation (Acute) Vulvar lesion (Acute) 10/11/23. I&D of two small mucoid cysts R labia. Breast lump (Acute) Breast pain, right (Acute) Medical History Family history of breast cancer Pyelonephritis (08/19/13) Vitamin D deficiency Decreased hearing of right ear Migraine headache Temporal lobe epilepsy Primary focal hyperhidrosis Liver cyst Snoring Patent pressure equalization (PE) tube Colitis Anxiety and depression Surgical History History of tubal ligation laparoscopic b/l salpingectomy 10/25/21 S/P tympanostomy tube placement Family History (Updated 05/09/23 @ 15:38 by Eda Jackson CNM) Paternal Grandmother Breast cancer Mother Heart disease Hypertension Father Hyperlipidemia Sister Preeclampsia Social History (Updated 05/09/23 @ 15:16 by Honey Maharaj) Smoking/Tobacco Use Status: Never Second Hand Exposure: No Smoking risk assessment performed?: Yes Alcohol Intake: current Alcohol Intake frequency: holidays/special occasions only Drug use: Never Substance use type: does not use current occupation: dental medicine assistant Sexually active: Yes Current gender identity: female What type of physical activity do you participate in: none Seatbelt use: always Helmet use: Yes Drive intox or ride w/intox driver retraining instructor: No Do you feel safe at home: Yes Do you feel safe in your relationship?: Yes Female Reproductive History Menstrual control method: permanent sterilization History History 4 Para 2 Hx # Term Pregnancies Multiple births Hx # Pregnancies Ectopic pregnancies AB induced 2 Hx Number of Living Children 2 AB spontaneous Past Pregnancies Del. Date GA/Weeks # Preg Succ Route Wgt Sex Labor Lgth Anesth esia Location Prov Complic 12/13/09 No Yes vaginal 4167.38 g Male nvrh 04/26/14 No Yes vaginal 2608.156 g Female nvr h POCUS Exam (ED) Limited Gallbladder Exam DATE OF EXAM: 07/17/24 TIME OF EXAM: 05:40 PROVIDER THAT PERFORMED THE STUDY: Noy Newton IS THIS A REPEAT EXAM DURING THIS ENCOUNTER: No REASON FOR VISIT: Nausea/vomiting and RUQ pain VISUALIZED STRUCTURES: Gallbladder and Liver PERTINENT FINDINGS/IMPRESSION: No apparent abnormalities INCIDENTAL FINDINGS: Limited views obtained, no sonographic velazco's sign Exam complete
[2024-07-17 05:38] LABS: Abs Immature Grans 0.03 10^3/uL (0.0-0.06); Absolute Basophil Count 0.04 10^3/uL (0.0-0.2); Absolute Eosinophil Count 0.14 10^3/uL (0.0-0.7); Absolute Lymphocyte Count 2.68 10^3/uL (1.2-3.4); Absolute Monocyte Count 0.83 10^3/uL (0.1-0.8); Absolute Neutrophil Count 10.11 10^3/uL (1.2-6.7); Basophils % 0.3 %; HCT 40.6 % (36.0-46.0); HGB 13.5 g/dL (11.2-15.7); Immature Grans % 0.2 %; Lymphocytes % 19.4 %; MCH 27.4 pg (27.0-33.0); MCHC 33.3 % (32.0-36.0); MCV 83 fL (80-95); MPV 10.5 fL (8.0-11.0); Neutrophils % 73.1 %; Platelet Count 326 10^3/uL (130-400); RBC 4.92 10^6/uL (3.93-5.22); RDW 13.1 % (11.7-14.6); RDW-SD 39.2 fL; WBC 13.83 10^3/uL (4.4-10.8)
[2024-07-17] MEDS: Ondansetron 4 MG/2 ML VIAL IVP (05:40)
[2024-07-17 06:05] LABS: Bilirubin Negative (Negative); Blood Moderate (Negative); Clarity Sl Cloudy (Clear); Glucose Negative (Negative); Ketones Negative (Negative); Leukocyte Esterase Small (Negative); Nitrite Negative (Negative); Specific Gravity >= 1.030 (1.005-1.025); Urobilinogen 0.2 mg/dL (Up to 0.2); pH 5.5 (5-8)
[2024-07-17 06:17] LABS: ALT 15 U/L (14-59); AST 14 U/L (15-37); Albumin 4.2 g/dL (3.4-5.0); Alkaline Phosphatase 70 U/L (46-116); Anion Gap 9.2 mmol/L (3-11); BUN 10 mg/dL (7-18); Bilirubin, Total 0.6 mg/dL (0.2-1.0); CO2 27.8 mmol/L (21.0-32.0); CREATININE 0.6 mg/dL (0.55-1.02); Calcium 9.4 mg/dL (8.5-10.1); Chloride 103 mmol/L (98-107); Estimated GFR 122.23 (mL/min/1.73m2); Glucose 95 mg/dL (74-106); Lipase 76 U/L (<78); Magnesium 1.7 mg/dL (1.8-2.4); Potassium 3.9 mmol/L (3.5-5.1); Sodium 140 mmol/L (136-145); Total Protein 7.9 g/dL (6.4-8.2)
[2024-07-17 06:43] LABS: Bacteria Moderate HPF (Negative); C & S Indicated? No; Casts Negative LPF (Negative); Crystals Negative HPF (Negative); Epithelial Cells Many HPF (Negative); Mucus Negative (Negative)
== END 2024-07-17 06:59 | disposition home or self-care (01) ==
PROVIDERS: Emergency Provider Emergency Medicine; PCP Internal Medicine
DX: R19.7 Diarrhea, unspecified (principal); R11.2 Nausea with vomiting, unspecified; R10.33 Periumbilical pain
CPT/HCPCS: 76705; 80053; 83690; 96374; 99284; 81003; 81015; 83735; 85025; J2405

== ENCOUNTER 2024-07-23 11:42 | Emergency (ER) | payer OTHER, MEDICAID, SELFPAY ==
[2024-07-23] VITALS (15 sets, daily range): BP systolic 110–138; BP diastolic 73–104; PULSE 75–140; RESP 13–27; O2SAT 94–100
--- NOTE | 2024-07-23 11:45 | RT.EKG_ITS ---
APPROVED REPORT Exam: Resting ECG Reason for Exam: sob Patient Location: E HR:123 bpm ECG Measurements Heart Rate 123 AXIS OR 131 P 67 QRSd 85 QRS 42 QT 331 T 18 QTc 476 Conclusion Sinus tachycardia...rate> 99 Multiple ventricular premature complexes...V complexes w/ short R-R intervls Aberrant complex...small R-R variation, aberrant QRS Low voltage, precordial leads...precordial leads <1.0mV
--- NOTE | 2024-07-23 12:03 | DI.CT_ITS ---
Exam(s) CT THORAX ABD/PEL CTA EXAM: CT THORAX ABD/PEL CTA CLINICAL HISTORY: sudden onset chest pain, n/v, upper abd pain. TECHNIQUE: Imaging Protocol: Axial computed tomography images with coronal and sagittal reformatted images were created and reviewed CONTRAST MATERIAL: Intravenous: Omnipaque 350 Contrast volume:100 ml Oral: None COMPARISON: CT CT ABDOMEN PELVIS W from 06/23/2024 FINDINGS: CHEST: AORTA: There is no evidence of aneurysmal dilatation of thoracic aorta and no evidence of aortic dissection nor pericardial effusion. No significant atherosclerotic disease in the thoracic aorta. The abdominal aorta appears unremarkable. No aneurysm. No dissection. No stenosis at the origin of mesenteric and renal arteries. Aortic bifurcation unremarkable as are the iliac arteries and common femoral arteries. PULMONARY ARTERIES: No obvious intraluminal filling defects to suggest pulmonary emboli, realizing that this was not performed as a dedicated pulmonary embolus study. LUNGS: No evidence of pulmonary infarction nor infiltrates nor pleural effusions. No concerning pulmonary nodules. No pneumothorax. No significant focal findings in the trachea and mainstem bronchi. There is no bronchiectasis.. MEDIASTINUM: There is no hilar nor mediastinal adenopathy. Visualized thyroid unremarkable. CARDIAC: Heart size is normal. There is no pericardial effusion. ABDOMEN: There is no ascites. LIVER: There are no focal hepatic lesions nor dilatation of intrahepatic ducts. GALLBLADDER/BILIARY: No obvious gallbladder pathology. CBD is not dilated. PANCREAS: No evidence of pancreatic mass nor dilatation of the pancreatic duct. SPLEEN: Spleen is not enlarged. There are no intrasplenic lesions. Splenic and portal veins are patent. ADRENALS: There are no significant adrenal masses. KIDNEYS: Unremarkable. No cysts. No fluid masses. No calculi nor hydronephrosis LYMPH NODES: There is no retroperitoneal nor para-aortic adenopathy. No obvious mesenteric masses. ABDOMINAL WALL: No evidence of significant anterior abdominal wall hernia. GI: There is no evidence of bowel obstruction, free air, nor abscess.There are no ischemic appearing bowel loops. There is fluid throughout the colon consistent with diarrhea state. Also within distal small bowel loops. PELVIS: LYMPH NODES: There is no intrapelvic nor inguinal adenopathy. GI: No evidence of appendicitis.No evidence of sigmoid diverticulitis. URINARY BLADDER: Collapsed. No obvious abnormal findings. REPRODUCTIVE: Uterus and adnexal regions appear age-appropriate. There is a cyst in the left ovary measuring 2.5 by 1.8 cm which is most probably follicular given this patient's age. There is no fluid in the adnexal regions nor in the cul-de-sac. OSSEOUS: No significant osseous lesions. IMPRESSION: 1. No evidence of aortic aneurysm, dissection, nor pericardial effusion 2. There is no significant atherosclerotic disease in the thoracic and abdominal aorta is nor at the level the aortic bifurcation nor within the common and external iliac arteries and no evidence of dissection of these vessels. 3. No obvious acute pulmonary emboli, realizing the study was performed with dissection protocol as opposed to pulmonary embolus protocol. 4. No significant focal lung findings nor pleural effusions. No intrathoracic adenopathy. 5. The colon is filled with fluid consistent with diarrhea state. The distal small bowel loops are also fluid-filled. There is no evidence of bowel obstruction, free air, nor abscess. Report called by myself to ER physician 07/23/2024 at 1:15 p.m. RADIATION DOSE DELIVERED: 836.75mGy.cm Total DLP DATA REPOSITORY: All CT scans at this facility are submitted to the National Radiology Data Registry (NRDR) Dose Index Registry (DIR) with the [employer] (ACR). RADIATION OPTIMIZATION: All CT scans at this facility use at least one of these dose optimization techniques: automated exposure control; mA and/or kV adjustment per patient size (includes targeted exams where dose is matched to clinical indication); or iterative reconstruction.
--- NOTE | 2024-07-23 12:06 | ED.GENADUL_ITS ---
Discharge Plan Disposition Patient Disposition: Home Condition: Stable Discharge Details Clinical Impression: Abdominal pain, N&V (nausea and vomiting) Primary Care Provider: Gamal Bacon ED Provider: Narinder Farley Home Meds and New Rx's Prescriptions: New ondansetron 4 mg tablet,disintegrating 4 mg PO Q8H PRN (Reason: nausea and vomiting) Qty: 30 0RF Continued valacyclovir [Valtrex] 1 gram tablet 2,000 mg PO DAILY PRN Zepbound 5 mg/0.5 mL pen injector 5 mg SUBCUT .weekly Patient Comments: INJECT 5mg SUBCUTANEOUSLY WEEKLY Discharge Instructions Additional Instructions: Your blood work and CAT scan did not show any concerning findings other than your white blood cell count was elevated which can happen when you have inflammation of your bowels in 1 year having vomiting. Follow-up with your primary care provider if your symptoms are continuing within a week. If you feel significantly more ill or have persistent vomiting despite the nausea medication return to the emergency department for reevaluation. HPI General Mode of arrival: ambulatory . Date/Time Provider Initiated Documentation: 07/23/24 11:44 . Limitations to Documentation: no limitations . Information obtained by: patient . History of Present Illness 33 year old F presents to the emergency department with the chief complaint of upper abdoman pain, n/v, described as severe, and is localized to the abdomen. Patient started experiencing this hour(s) (2) and it has been constant. No relieving factors improve symptom(s), No exacerbating factors reported . Patient notes chest pain, nausea/vomiting and shortness of breath; denies fever/chills. Patient did receive the following treatments prior to arrival, none Related Data Home Medications ?Medication ?Instructions ?Recorded ?Confirmed valacyclovir 1 gram tablet 2,000 mg PO DAILY PRN 10/1007/23/24 (Valtrex) tirzepatide (weight loss) 5 mg/0.5 5 mg subcut .weekly 07/17/24 07/23/24 mL subcutaneous pen injector (Zepbound) ondansetron 4 mg disintegrating 4 mg PO Q8H PRN nausea and 07/23/24 tablet vomiting #30 tabs Previous Rx's ?Medication ?Instructions ?Recorded ondansetron 4 mg disintegrating 4 mg PO Q8H PRN nausea and 07/23/24 tablet vomiting #30 tabs Allergies Allergy/AdvReac Type Severity Reaction Status Date / Time No Known Allergies Allergy Verified 07/23/24 11:55 General Stated Complaint: Abd Prob LINDSEY: 3 Review of Systems All systems reviewed & are unremarkable except as noted in HPI and below Constitutional Constitutional: Denies chills and Denies fever(s) Cardiovascular Cardiovascular: Reports chest pain and Reports dyspnea Respiratory Respiratory: Denies cough and Reports dyspnea Gastrointestinal Gastrointestinal: Reports abdominal pain, Reports nausea and Reports vomiting Exam Const Orientation: alert HENSC Head: normal to inspection Ears: external ears normal General nose exam: external nose normal Mouth: moist mucous membranes Eyes General: appearance normal, both eyes and all related structures Neck Neck: normal visual inspection Resp Effort & Inspection: normal respiratory effort and able to speak in complete sentences Cardio Rate: regular rate GI Palpation: soft and tender Skin General skin exam: no rashes or lesions noted Neuro General: patient alert and patient oriented x3 Extrem General: normal to inspection Psych Mental Status: mental status grossly normal Course Vital Signs Vital signs: Vital Signs Pulse 140 H 07/23/24 11:52 Respiratory Rate 18 07/23/24 11:52 Blood Pressure 121/98 H 07/23/24 11:52 Pulse Oximetry 98 07/23/24 11:52 Pulse 140 H 07/23/24 11:56 Respiratory Rate 18 07/23/24 11:56 Blood Pressure 121/98 H 07/23/24 11:56 Pulse Oximetry 98 07/23/24 11:56 Oxygen Delivery Method Room Air 07/23/24 11:56 Oxygen Flow Rate 0 07/23/24 11:56 Pain Level 10 07/23/24 11:56 Medical Decision Making 33-year-old female with no significant past medical history comes in with acute onset abdominal pain rating to the chest along with shortness of breath and nausea vomiting starting around 10 AM while she was at work. She says prior to that she felt well and all day yesterday she felt well. No recent fevers or chills. She appears in pain holding her upper abdomen. Her abdomen is nondistended and she does have tenderness in all quadrants. There is clear lungs, no JVD, no crackling of the chest. Given the acute onset of symptoms we will proceed with CBC, CMP, lipase, troponins given the chest and abdominal pain with shortness of breath I will obtain a CTA of the chest along with abdomen pelvis CT to evaluate for entities such as PE, Boerhaave syndrome, SBO Patient's labs taking longer than usual to process. She feels significantly better and is no longer having any pain or vomiting. CT chest abdomen pelvis all negative for acute findings other than appears to have a developing diarrheal illness. Will plan on delta troponin as long as lab work is benign we will plan for discharge and have her follow-up with her PCP if symptoms continue and return precautions given. The only lab results so far is a cbc which shows a leukocytosis to 24 which she has had elevations before and could be due to her diarrheal illness. She has no fevers or other symptoms to suggest underlying sepsis or infectious etiology other than her developing diarrheal illness. Differential Diagnosis Differential Diagnosis: Boerhaave syndrome, medication reaction, pancreatitis, bowel obstruction Medical Records Medical records reviewed: Yes I reviewed the patient's medical records. Lab Data Lab results reviewed: Yes I reviewed the patient's lab results. ECG Data Attestation: I personally reviewed and interpreted this ECG (s) as follows: Prior ECG tracings: available for review Interpretation: sinus tachycardia, rate of 123 no stemi PFSH All Active Problems (Updated 07/23/24 @ 13:47 by Narinder Farley MD) N&V (nausea and vomiting) (Acute) Abdominal pain (Acute) Nausea, vomiting and diarrhea (Acute) Abdominal bloating (Acute) Fatigue (Acute) Ear popping (Acute) Vaginal discharge (Acute) Chronic constipation (Acute) Vulvar lesion (Acute) 10/11/23. I&D of two small mucoid cysts R labia. Breast lump (Acute) Breast pain, right (Acute) Medical History Family history of breast cancer Pyelonephritis (08/19/13) Vitamin D deficiency Decreased hearing of right ear Migraine headache Temporal lobe epilepsy Primary focal hyperhidrosis Liver cyst Snoring Patent pressure equalization (PE) tube Colitis Anxiety and depression Surgical History History of tubal ligation laparoscopic b/l salpingectomy 10/25/21 S/P tympanostomy tube placement Family History (Updated 05/09/23 @ 15:38 by Eda Jackson CNM) Paternal Grandmother Breast cancer Mother Heart disease Hypertension Father Hyperlipidemia Sister Preeclampsia Social History (Updated 05/09/23 @ 15:16 by Honey Maharaj) Smoking/Tobacco Use Status: Never Second Hand Exposure: No Smoking risk assessment performed?: Yes Alcohol Intake: current Alcohol Intake frequency: holidays/special occasions only Drug use: Never Substance use type: does not use current occupation: dental preschool teacher's assistant Sexually active: Yes Current gender identity: female What type of physical activity do you participate in: none Seatbelt use: always Helmet use: Yes Drive intox or ride w/intox route salesman and driver: No Do you feel safe at home: Yes Do you feel safe in your relationship?: Yes Female Reproductive History Menstrual control method: permanent sterilization History History 4 Para 2 Hx # Term Pregnancies Multiple births Hx # Pregnancies Ectopic pregnancies AB induced 2 Hx Number of Living Children 2 AB spontaneous Past Pregnancies Del. Date GA/Weeks # Preg Succ Route Wgt Sex Labor Lgth Anesth esia Location Prov Complic 12/13/09 No Yes vaginal 4167.38 g Male nv[facility] 04/26/14 No Yes vaginal 2608.156 g Female nvr h
[2024-07-23] MEDS: Droperidol 5 MG/2 ML VIAL 2.5 MG IVP (12:10)
[2024-07-23] MEDS: Normal Saline 1,000 ML 1000 ML IV (12:14)
[2024-07-23] MEDS: Ketorolac 15 MG/ML VIAL IVP (12:15)
[2024-07-23 12:16] LABS: Abs Immature Grans 0.13 10^3/uL (0.0-0.06); Absolute Lymphocyte Count 3.97 10^3/uL (1.2-3.4); Absolute Monocyte Count 1.32 10^3/uL (0.1-0.8); Absolute Neutrophil Count 19.11 10^3/uL (1.2-6.7); Basophils % 0.4 %; Eosinophils % 0.8 %; HCT 45.9 % (36.0-46.0); HGB 15.4 g/dL (11.2-15.7); Immature Grans % 0.5 %; MCH 27.4 pg (27.0-33.0); MCHC 33.6 % (32.0-36.0); MCV 82 fL (80-95); Monocytes % 5.3 %; Platelet Count 416 10^3/uL (130-400); RBC 5.63 10^6/uL (3.93-5.22); RDW 13.2 % (11.7-14.6); RDW-SD 38.9 fL; WBC 24.82 10^3/uL (4.4-10.8)
[2024-07-23] MEDS: Normal Saline - Diluent 50 ML VIAL IJ (12:30)
[2024-07-23] MEDS: Omnipaque 350 MG/ML 500 ML BTL-Imaging package 100 ML IJ (12:31)
[2024-07-23 13:39] LABS: ALT 24 U/L (14-59); AST 23 U/L (15-37); Albumin 4.9 g/dL (3.4-5.0); Alkaline Phosphatase 80 U/L (46-116); Anion Gap 13.2 mmol/L (3-11); BUN 12 mg/dL (7-18); Bilirubin, Total 0.6 mg/dL (0.2-1.0); CO2 24.8 mmol/L (21.0-32.0); CREATININE 0.7 mg/dL (0.55-1.02); Calcium 10.5 mg/dL (8.5-10.1); Chloride 101 mmol/L (98-107); Estimated GFR 117.77 (mL/min/1.73m2); Glucose 110 mg/dL (74-106); Lipase 91 U/L (<78); Magnesium 1.9 mg/dL (1.8-2.4); Potassium 3.7 mmol/L (3.5-5.1); Sodium 139 mmol/L (136-145); Total Protein 9.4 g/dL (6.4-8.2)
[2024-07-23 13:43] LABS: Troponin I < 4 ng/L (<or=51)
[2024-07-23 13:46] LABS: HCG Qual (Serum) Negative
[2024-07-23 13:53] LABS: Bilirubin Negative (Negative); Blood Negative (Negative); Clarity Clear (Clear); Glucose Negative (Negative); Ketones 40 mg/dL (Negative); Leukocyte Esterase Negative (Negative); Nitrite Negative (Negative); Specific Gravity <= 1.005 (1.005-1.025); Urobilinogen 0.2 mg/dL (Up to 0.2); pH 5.5 (5-8)
[2024-07-23 13:53] LABS: Troponin I < 4 ng/L (<or=51)
[2024-07-23 14:09] LABS: Bacteria Rare HPF (Negative); C & S Indicated? No; Casts 0-2 Hyaline LPF (Negative); Crystals Negative HPF (Negative); Epithelial Cells Moderate HPF (Negative); Mucus Trace (Negative); RBC Negative HPF (0-2); WBC Negative HPF (0-5)
== END 2024-07-23 14:16 | disposition home or self-care (01) ==
PROVIDERS: Emergency Provider Emergency Medicine; PCP Internal Medicine
DX: R10.13 Epigastric pain (principal); R11.2 Nausea with vomiting, unspecified
CPT/HCPCS: 99285; 99284; 36415; 96374; 96375; 71275; 80053; 83690; 93005; 96361; 74174; 81003; 81015; 82248; 83735; 84484; 84703; 85025; 93010; J1790; J1885